=== PATIENT | female | born 1990 | race Caucasian/White ===

== ENCOUNTER 2020-07-15 08:45 | Emergency (ER) | payer BC, SELFPAY ==
[2020-07-15 09:09] LABS: Basophils Absolute Auto 0.1 K/mm3 (0.0-0.1); Basophils Percent Auto 0.6 % (0.2-1.2); Eosinophils Absolute Auto 0.2 K/mm3 (0-0.3); Eosinophils Percent Auto 1.4 % (0-4.4); Hematocrit 46.4 % (37.0-47.0); Hemoglobin 15.5 g/dL (12.0-15.0); Immature Granulocyte Absolute 0.03 K/mm3 (0.00-0.031); Immature Granulocyte Percent A 0.3 % (0-0.5); Lymphocytes Absolute Auto 1.62 K/mm3 (0.9-3.2); Mean Corpuscular HGB Conc 33.4 g/dl (32-36); Mean Corpuscular Hemoglobin 29.6 pg (26-34); Mean Corpuscular Volume 88.7 fl (80-100); Mean Platelet Volume 9.2 fl (7.4-10.4); Monocytes Absolute Auto 0.6 K/mm3 (0.1-0.6); Monocytes Percent Auto 5.5 % (2.6-8.5); Neutrophils Absolute Auto 8.3 K/mm3 (1.3-6.7); Neutrophils Percent Auto 77.2 % (45.5-73.1); Platelet Count Result 366 k/mm3 (150-375); Red Blood Count 5.23 M/mm3 (4.2-5.4); Red Cell Distribution Width 13.6 % (11.5-14.5); White Blood Count 10.8 K/mm3 (4.5-10.0)
[2020-07-15 09:10] VITALS: BP 144/77; PULSE 81; RESP 17; TEMP 36.4; O2SAT 99
[2020-07-15 09:29] LABS: Anion Gap 8 mmol/L (8-16); Blood Urea Nitrogen 8 mg/dL (7-17); Calcium 9.3 mg/dL (8.4-10.2); Carbon Dioxide 28 mmol/L (22-30); Chloride 105 mmol/L (98-107); Estimated CRCL calculation 113 ml/min; Estimated Glomerular Filt Rate > 60; Glucose 95 mg/dL (65-105); Sodium 141 mmol/L (137-145)
[2020-07-15 09:39] LABS: Beta HCG Quantitative < 2.39 mIU/ML
--- NOTE | 2020-07-15 10:19 | ED.FEMALEGU ---
HPI - Female Genitourinary General Chief complaint: Vaginal Bleeding Stated complaint: poss miscarriage Time Seen by Provider: 07/15/20 08:51 History of Present Illness HPI Narrative: Patient is a 30-year-old female who presents ER for concern of possible miscarriage. LMP on 06/05/2020. She had a positive test last week at her primary care physician's office. She is scheduled to follow-up with Dr. Jackson for OB but has not yet been seen. She noticed some spotting last night while she is at home. This morning when she woke up she feels like she is on her third day of her period with some heavier bleeding. She is filled 1 pad. Has some lower abdominal cramping but no pain. Denies any urinary symptoms. Related Data Allergies Allergy/AdvReac Type Severity Reaction Status Date / Time No Known Allergies Allergy Verified 07/15/20 09:16 Review of Systems Review of Systems: All systems reviewed & are unremarkable except as noted in HPI and below Gastrointestinal: Gastrointestinal: Reports abdominal pain (cramping), Denies nausea and Denies vomiting Genitourinary: Genitourinary: Reports abnormal vaginal bleeding, Denies nocturia, Denies dysuria and Denies vaginal discharge Neurologic: Denies syncope PMFSH Past Medical History Medical History (Updated 07/15/20 @ 11:07 by Nadeem Donald MD) Healthy female adult Surgical History Surgical History (Updated 07/15/20 @ 10:21 by Nadeem Donald MD) No history of previous surgery Family History Family History (Updated 07/23/18 @ 10:35 by DOCTOR UNKNOWN) Grandparent Family history of schizophrenia Hypertension Family history of elevated blood lipids Family history of lung cancer Mother Hypertension Depression Family history of migraine headaches Patient's mother is in good health Family history of arthritis Father Family history of thyroid disease Family history of obesity Patient's father is in good health Social History Social History Smoking status: Never smoker Second hand tobacco smoke exposure: No Alcohol intake: current Exam Narrative: Exam Narrative: GENERAL: Well-appearing, well-nourished, and in no acute distress. HEAD: Normocephalic, atraumatic. CHEST: Clear to auscultation. No respiratory distress. HEART: Regular rate and rhythm. Normal peripheral pulses. ABDOMEN: Soft, nontender, nondistended. EXTREMITIES: Normal range of motion. No edema. NEURO: Alert and oriented x3. PSYCH: Normal mood and affect. Course Course Emergency Course: Patient informed of results and diagnosis. Patient without unilateral localizing tenderness on abdominal exam. Undetectable blood level. O+. No need for RhoGam. Recommend follow-up with PCP. Vital Signs Vital signs: Vital Signs Temperature 97.5 F L 07/15/20 09:10 Pulse Rate 81 07/15/20 09:10 Respiratory Rate 17 07/15/20 09:10 Blood Pressure 144/77 H 07/15/20 09:10 Pulse Oximetry 99 07/15/20 09:10 Temperature 97.5 F L 07/15/20 09:10 Pulse Rate 80 07/15/20 10:54 Respiratory Rate 18 07/15/20 10:54 Blood Pressure 135/75 07/15/20 10:54 Pulse Oximetry 100 07/15/20 10:54 MDM - Female Genitourinary Lab Data Result diagrams: 07/15/20 09:01 07/15/20 09:01 Labs: Lab Results 07/15/20 07/15/20 07/15/20 Range/Units 09:01 09:01 09:01 WBC 10.8 H (4.5-10.0) K/mm3 RBC 5.23 (4.2-5.4) M/mm3 Hgb 15.5 H (12.0-15.0) g/dL Hct 46.4 (37.0-47.0) % MCV 88.7 (80-100) fl MCH 29.6 (26-34) pg MCHC 33.4 (32-36) g/dl RDW 13.6 (11.5-14.5) % Plt Count 366 (150-375) k/mm3 MPV 9.2 (7.4-10.4) fl Immature Gran % (Auto) 0.3 (0-0.5) % Neut % (Auto) 77.2 H (45.5-73.1) % Lymph % (Auto) 15.0 L (18.3-44.2) % Deuel % (Auto) 5.5 (2.6-8.5) % Eos % (Auto) 1.4 (0-4.4) % Baso % (Auto) 0.6 (0.2-1.2) % Lymph # (Auto) 1.62 (0.9-3.2) K/mm3 Deuel # (A
[2020-07-15 10:54] VITALS: BP 135/75; PULSE 80; RESP 18; O2SAT 100
== END 2020-07-15 11:17 | disposition home or self-care (01) ==
PROVIDERS: Emergency Provider Emergency Medicine; PCP Family Medicine
DX: O03.9 Complete or unspecified spontaneous abortion without complication (principal)
CPT/HCPCS: 36415; 80048; 81025; 84702; 85025; 85461; 99284

== ENCOUNTER 2021-05-08 10:04 | Outpatient (CLI) | payer BC, SELFPAY ==
[2021-05-08 11:00] VITALS: BP 129/75; PULSE 94
[2021-05-08 11:01] VITALS: BP 129/75; PULSE 92
[2021-05-08 11:02] LABS: Basophils Percent Auto 0.3 % (0.2-1.2); Eosinophils Absolute Auto 0.1 K/mm3 (0-0.3); Eosinophils Percent Auto 0.8 % (0-4.4); Hematocrit 41.2 % (37.0-47.0); Hemoglobin 13.7 g/dL (12.0-15.0); Immature Granulocyte Absolute 0.07 K/mm3 (0.00-0.031); Immature Granulocyte Percent A 0.7 % (0-0.5); Lymphocytes Percent Auto 13.8 % (18.3-44.2); Mean Corpuscular HGB Conc 33.3 g/dl (32-36); Mean Corpuscular Hemoglobin 30.2 pg (26-34); Mean Corpuscular Volume 90.7 fl (80-100); Mean Platelet Volume 10.9 fl (7.4-10.4); Monocytes Absolute Auto 0.8 K/mm3 (0.1-0.6); Monocytes Percent Auto 7.4 % (2.6-8.5); Neutrophils Absolute Auto 7.9 K/mm3 (1.3-6.7); Platelet Count Result 196 k/mm3 (150-375); Red Blood Count 4.54 M/mm3 (4.2-5.4); Red Cell Distribution Width 14.6 % (11.5-14.5); White Blood Count 10.2 K/mm3 (4.5-10.0)
[2021-05-08 11:16] VITALS: BP 133/73; PULSE 83
[2021-05-08 11:18] LABS: Alanine Aminotransferase 24 U/L (4-35); Albumin Level 3.6 g/dL (3.5-5.1); Alkaline Phosphatase 186 U/L (38-126); Anion Gap 2 mmol/L (8-16); Aspartate Amino Transferase 29 U/L (14-36); Bilirubin,Total 0.1 mg/dL (0.2-1.3); Blood Urea Nitrogen 11 mg/dL (7-17); Calcium 9.3 mg/dL (8.4-10.2); Carbon Dioxide 20 mmol/L (22-30); Chloride 108 mmol/L (98-107); Estimated Glomerular Filt Rate > 60; Glucose 104 mg/dL (65-110); Sodium 130 mmol/L (137-145)
[2021-05-08 12:18] LABS: Creatinine Urine 41.9 mg/dL; Total Protein Urine Random 12 mg/dL; Ur Ttl Prot Creatinine Ratio 0.29 mg/mg (0-0.20)
[2021-05-08 12:45] LABS: Add Urine Microscopic? YES; Appearance Urine Cloudy (Clear); Bilirubin Urine Negative (Negative); Blood Urine Negative (Negative); Color Urine Red (Yellow); Glucose Urine UA Negative (Negative); Ketones Urine Negative (Negative); Leukocyte Esterase Ur Negative LEU/UL (NEGATIVE); Mucus Urine Rare /lpf; Nitrate Urine Negative (Negative); Protein Urine Negative (Negative); Specific Grav Ur 1.008 (1.001-1.035); Squamous Epithelial Cell Urine Occasional /hpf (Few); Urobilinogen Urine Negative mg/dL (<2.0); WBC Urine 0-3 /hpf (0-3)
== END 2021-05-08 12:46 | disposition home or self-care (01) ==
LOC: ANHOBOP 10:10 → ANHOBPP 10:12
PROVIDERS: PCP Family Medicine; Visit Provider Obstetrics & Gynecology
DX: O13.9 Gestational [pregnancy-induced] hypertension without significant proteinuria, unspecified trimester (principal); Z3A.00 Weeks of gestation of pregnancy not specified
CPT/HCPCS: 36415; 59025; 80053; 81001; 82570; 84156; 84550; 85025; 87077; 87086; 87088; 87186; 99199

== ENCOUNTER 2021-05-16 05:01 | Inpatient (IN) | payer BC, SELFPAY ==
[2021-05-16] VITALS (33 sets, daily range): BP systolic 125–164; BP diastolic 56–119; PULSE 71–97; RESP 16; TEMP 36.3–37.3; BMI 38.7
--- NOTE | 2021-05-16 05:49 | LDADM ---
This patient, Emilia Mcfarlane, was admitted to Labor/Delivery/Recovery 103 on 05/16/21 at 05:01. Plans for labor, pain management and were discussed with patient. Patient/family oriented to hospital policies and general routines including ID bracelet, bed and alarms, visiting hours, pain management, procedures, bathroom and other care routines, personal items, smoking policy, room service/diet and guest tray routines, security routines, and visiting hours. Patient/Family are encouraged to report perceived risks to care and to ask questions if they do not understand what they are told or what they should do. See OBIX for further documentation.
[2021-05-16 05:59] LABS: Basophils Percent Auto 0.2 % (0.2-1.2); Eosinophils Absolute Auto 0.1 K/mm3 (0-0.3); Eosinophils Percent Auto 0.9 % (0-4.4); Hematocrit 40.3 % (37.0-47.0); Hemoglobin 13.7 g/dL (12.0-15.0); Immature Granulocyte Absolute 0.08 K/mm3 (0.00-0.031); Immature Granulocyte Percent A 0.7 % (0-0.5); Lymphocytes Absolute Auto 1.84 K/mm3 (0.9-3.2); Lymphocytes Percent Auto 15.1 % (18.3-44.2); Mean Corpuscular Hemoglobin 30.8 pg (26-34); Mean Corpuscular Volume 90.6 fl (80-100); Monocytes Absolute Auto 0.8 K/mm3 (0.1-0.6); Monocytes Percent Auto 6.2 % (2.6-8.5); Neutrophils Absolute Auto 9.4 K/mm3 (1.3-6.7); Neutrophils Percent Auto 76.9 % (45.5-73.1); Platelet Count Result 184 k/mm3 (150-375); Red Blood Count 4.45 M/mm3 (4.2-5.4); Red Cell Distribution Width 14.4 % (11.5-14.5); White Blood Count 12.2 K/mm3 (4.5-10.0)
[2021-05-16] MEDS: AMPICILLIN 2 GM/NS 100 ML 2 GM/100 ML BAG IVPB (06:04)
[2021-05-16] MEDS: OXYTOCIN 30 UNITS/NS 500 ML 30 UNITS/500 ML BAG 6 UNITS IV CONT (06:04)
[2021-05-16] MEDS: LACTATED RINGERS 1,000 ML 125 ML IV CONT ×2 (06:04→17:05)
[2021-05-16 06:05] LABS: Alanine Aminotransferase 32 U/L (4-35); Albumin Level 3.4 g/dL (3.5-5.1); Alkaline Phosphatase 195 U/L (38-126); Anion Gap 4 mmol/L (8-16); Aspartate Amino Transferase 32 U/L (14-36); Bilirubin,Total 0.4 mg/dL (0.2-1.3); Blood Urea Nitrogen 10 mg/dL (7-17); Calcium 9.5 mg/dL (8.4-10.2); Carbon Dioxide 21 mmol/L (22-30); Chloride 108 mmol/L (98-107); Estimated CRCL calculation 150 ml/min; Estimated Glomerular Filt Rate > 60; Glucose 129 mg/dL (65-110); Potassium 3.7 mmol/L (3.4-5.0); Sodium 133 mmol/L (137-145)
--- NOTE | 2021-05-16 08:45 | WPDOBADMIT ---
Obstetrics - Admit Note Admission Note: record reviewed. Additions to the history and/or subsequent changes in the physical findings follow. 30 y/o at 38 4/7 weeks with gestational hypertension, here for scheduled induction of labor. GBS neg. No headaches. No leakage of fluid. No visual change. No RUQ or epigastric pain. AVSS (130-140 / 80-90) NST reactive TOCO: irregular contractions ABD soft, nontender, gravid, vertex EXT nontender Cervix 2-3/50/-2. AROM with clear fluid. Vertex. A: IUP at term with gestational hypertension, here for induction of labor P: Reviewed risks / benefits / alternatives. Oxytocin. Anticipate .
[2021-05-16] MEDS: AMPICILLIN 1 GM/NS 50 ML 1 GM/50 ML BAG IVPB ×2 (10:02→14:05)
--- NOTE | 2021-05-16 10:45 | WPDANESEPP ---
Anes - Eval Pre Procedure Procedure: labor pain management Date/Time: 05/16/21 10:45 Surgeon: Leigha Preop Diagnosis: Pain during labor Pre Op Diagnosis: IOL Patient Data Age: 30 Gender: F Height: 1.57 m Weight: 96 kg Last Vital Signs Temp 99.2 F 05/16/21 08:59 Pulse 78 05/16/21 10:31 BP 126/78 05/16/21 10:31 Allergies Allergy/AdvReac Type Severity Reaction Status Date / Time No Known Allergies Allergy Verified 04/26/21 15:39 Home Medications Medication Instructions Recorded Confirmed Type vit no.95-ferrous 1 tablet PO DAILY 07/22/20 05/16/21 History fumarate 28 mg-folic acid 800 mcg tablet Laboratory Tests 05/16/21 05/16/21 05/16/21 05:44 05:44 05:44 WBC 12.2 K/mm3 H K/mm3 (4.5-10.0) RBC 4.45 M/mm3 M/mm3 (4.2-5.4) Hgb 13.7 g/dL g/dL (12.0-15.0) Hct 40.3 % % (37.0-47.0) MCV 90.6 fl fl (80-100) MCH 30.8 pg pg (26-34) MCHC 34.0 g/dl g/dl (32-36) RDW 14.4 % % (11.5-14.5) Plt Count 184 k/mm3 k/mm3 (150-375) MPV 11.0 fl H fl (7.4-10.4) Immature Gran % (Auto) 0.7 % H % (0-0.5) Neut % (Auto) 76.9 % H % (45.5-73.1) Lymph % (Auto) 15.1 % L % (18.3-44.2) Sunflower % (Auto) 6.2 % % (2.6-8.5) Eos % (Auto) 0.9 % % (0-4.4) Baso % (Auto) 0.2 % % (0.2-1.2) Lymph # (Auto) 1.84 K/mm3 K/mm3 (0.9-3.2) Sunflower # (Auto) 0.8 K/mm3 H K/mm3 (0.1-0.6) Eos # (Auto) 0.1 K/mm3 K/mm3 (0-0.3) Baso # (Auto) 0.0 K/mm3 K/mm3 (0.0-0.1) Abs Immat Gran (auto) 0.08 K/mm3 H K/mm3 (0.00-0.031) Absolute Neuts (auto) 9.4 K/mm3 H K/mm3 (1.3-6.7) Absolute Nucleated RBC 0.0 K/mm3 K/mm3 (0.0-0.012) Nucleated RBC % 0.0 % % (0.0-0.2) Sodium Potassium Chloride Carbon Dioxide Anion Gap BUN Creatinine Estim Creat Clear Calc Estimated GFR Glucose Uric Acid Calcium Total Bilirubin AST ALT Alkaline Phosphatase Total Protein Albumin RPR Pending Blood Type O Positive Antibody Screen Negative 05/16/21 05/16/21 05:44 05:44 WBC RBC Hgb Hct MCV MCH MCHC RDW Plt Count MPV Immature Gran % (Auto) Neut % (Auto) Lymph % (Auto) Sunflower % (Auto) Eos % (Auto) Baso % (Auto) Lymph # (Auto) Sunflower # (Auto) Eos # (Auto) Baso # (Auto) Abs Immat Gran (auto) Absolute Neuts (auto) Absolute Nucleated RBC Nucleated RBC % Sodium 133 mmol/L L mmol/L (137-145) Potassium 3.7 mmol/L mmol/L (3.4-5.0) Chloride 108 mmol/L H mmol/L (98-107) Carbon Dioxide 21 mmol/L L mmol/L (22-30) Anion Gap 4 mmol/L L mmol/L (8-16) BUN 10 mg/dL mg/dL (7-17) Creatinine 0.50 mg/dL L mg/dL (0.7-1.0) Estim Creat Clear Calc 150 ml/min ml/min Estimated GFR > 60 (59 - ) Glucose 129 mg/dL H mg/dL (65-110) Uric Acid 6.0 mg/dL mg/dL (2.5-7.5) Calcium 9.5 mg/dL mg/dL (8.4-10.2) Total Bilirubin 0.4 mg/dL mg/dL (0.2-1.3) AST 32 U/L U/L (14-36) ALT 32 U/L U/L (4-35) Alkaline Phosphatase 195 U/L H U/L (38-126) Total Protein 7.0 g/dL g/dL (6.3-8.2) Albumin 3.4 g/dL L g/dL (3.5-5.1) RPR Blood Type Antibody Screen : gestational age (edc 05/26/21) HCG: positive Patient hx anesthesia problems: none Family hx anesthesia problems: none PM
--- NOTE | 2021-05-16 12:08 | PM.OBPNLAB ---
Pain Control Date/time seen: 05/16/21 12:08 Comments: Feeling more painful contractions. Pelvic Exam Dilation (cm): 4 Effacement (%): 90 station: -2 Comments: per RN exam Contractions Contraction frequency: 3 Contraction pattern: Regular Contraction intensity: Strong/Firm Status status: Category l Assessment and Plan Plan: continuous present management
--- NOTE | 2021-05-16 18:08 | P.PCNOB_ITS ---
OB - Delivery Note Procedure Delivery date: 05/16/21 Procedure: Induction of labor with Induction method: per pitocin protocol Delivery augmentation: rupture of membranes Delivery monitor: external FHT and external uterine Route of delivery: Laceration Description: Perineal - 2nd Degree Delivery repair: vicryl (3-0) Specimen: Yes (cord blood, placenta) Quantitative Blood Loss (ml): 260 Anesthesia type: Local (1% lidocaine) Disposition: PACU Complications: None Narrative: 30 y/o at 38 4/7 weeks gestation who presented to the [facility] for induction of labor. Oxytocin was administered intravenously. She received ampicillin for GBS colonization. Amniotomy was performed with return of clear fluid. She received an epidural for pain control. Her labor progressed and her cervix dilated completely. She pushed with good effort and delivered the 's head to the perineum, followed by the body. The nose and mouth were bulb suctioned. After a delay, the cord was clamped and cut. The was handed off the field. Cord blood was collected. The placenta delivered spontaneously and was grossly normal in appearance. The usual 3 vessel cord was noted. A second degree midline perineal laceration was sustained. This was reapproximated using 3 0 Vicryl in the usual layered fashion. Excellent hemostasis resulted as did excellent reapproximation of the normal anatomy. Needle and instrument counts were correct. The patient was taken to recovery room in stable condition. The went to the nursery in stable condition. I was present and scrubbed for the entire delivery. Brogan Baby Date of : 05/16/21 Time of : 17:40 Weeks of gestation at delivery: 38 gender: Female Weight (pounds): 6 presentation: vertex position: Right Occiput Anterior Placenta delivery description: Spontaneous and Normal Configuration cord vessel description: 3 Vessels and Delayed Cord Clamping score one minute: 8 score five minutes: 9
[2021-05-16] MEDS: OXYTOCIN 30 UNITS/NS 500 ML 30 UNITS/500 ML BAG 125 UNITS IV CONT (18:09)
--- NOTE | 2021-05-16 18:12 | PM.OBDSVD ---
DS: Admitting Diagnosis Admitting Diagnosis IUP at 38 4/7 weeks Gestational hypertension GBS colonization DS: Discharge Diagnosis Discharge Diagnosis (1) (normal spontaneous vaginal delivery): Code(s): O80 - Encounter for full-term uncomplicated delivery Status: Acute (2) Gestational hypertension: Code(s): O13.9 - Gestational [-induced] hypertension without significant proteinuria, unspecified trimester Status: Acute (3) GBS (group B Streptococcus carrier), +RV culture, currently : Code(s): O99.820 - Streptococcus B carrier state complicating Status: Acute OB - DS: Summary OB Procedures : None OB Procedures Intrapartum: Spontaneous Vag Delivery OB Procedures: : None DS: Data Data Completed and Pending Labs on day of discharge: Labs from last 24 hours 05/16/21 05/16/21 05/16/21 05:44 05:44 05:44 WBC RBC Hgb Hct MCV MCH MCHC RDW Plt Count MPV Immature Gran % (Auto) Neut % (Auto) Lymph % (Auto) Carbon % (Auto) Eos % (Auto) Baso % (Auto) Lymph # (Auto) Carbon # (Auto) Eos # (Auto) Baso # (Auto) Abs Immat Gran (auto) Absolute Neuts (auto) Absolute Nucleated RBC Nucleated RBC % Sodium 133 L Potassium 3.7 Chloride 108 H Carbon Dioxide 21 L Anion Gap 4 L BUN 10 Creatinine 0.50 L Estim Creat Clear Calc 150 Estimated GFR > 60 Glucose 129 H Uric Acid 6.0 Calcium 9.5 Total Bilirubin 0.4 AST 32 ALT 32 Alkaline Phosphatase 195 H Total Protein 7.0 Albumin 3.4 L RPR Blood Type O Positive Antibody Screen Negative 05/16/21 05/16/21 05:44 05:44 WBC 12.2 H RBC 4.45 Hgb 13.7 Hct 40.3 MCV 90.6 MCH 30.8 MCHC 34.0 RDW 14.4 Plt Count 184 MPV 11.0 H Immature Gran % (Auto) 0.7 H Neut % (Auto) 76.9 H Lymph % (Auto) 15.1 L Carbon % (Auto) 6.2 Eos % (Auto) 0.9 Baso % (Auto) 0.2 Lymph # (Auto) 1.84 Carbon # (Auto) 0.8 H Eos # (Auto) 0.1 Baso # (Auto) 0.0 Abs Immat Gran (auto) 0.08 H Absolute Neuts (auto) 9.4 H Absolute Nucleated RBC 0.0 Nucleated RBC % 0.0 Sodium Potassium Chloride Carbon Dioxide Anion Gap BUN Creatinine Estim Creat Clear Calc Estimated GFR Glucose Uric Acid Calcium Total Bilirubin AST ALT Alkaline Phosphatase Total Protein Albumin RPR Pending Blood Type Antibody Screen Discharge Plan Discharge Attending physician on discharge: Zohaib Ahuja Discharging Clinician: Zohaib Ahuja Patient Disposition: Home, Self-Care Activity: pelvic rest Diet: regular Discharge Instructions: Call or return if temperature above 100.4? F, increased abdominal pain, increased vaginal bleeding or any new problems. Stand Alone Forms: General Discharge Information Follow-up/Referrals: Zohaib Ahuja MD [Physician] - 6 Weeks Discharge Medications: New ibuprofen 600 mg tablet 600 mg PO Q6H PRN (Reason: cramps) Qty: 30 RF: 0 No Action PNV cmb#95-ferrous fumarate-FA [ Multivitamins] 28 mg iron- 800 mcg tablet 1 tablet PO DAILY RF: 0 Date of admission: 05/16/21 05:01 Primary Care Provider: Brooke Arvizu Admitting Provider: Zohaib Ahuja Attending physician on admission: Zohaib Ahuja Condition: Stable
[2021-05-16] MEDS: WITCH HAZEL 40 PADS 1 PAD TOPICAL (19:30)
[2021-05-16] MEDS: IBUPROFEN 600 MG TABLET PO (19:30)
[2021-05-16] MEDS: BENZOCAINE 20% AER SPR (*SP) 56 GM CAN 1 SPRAY TOPICAL (19:30)
[2021-05-17 04:44] LABS: Hematocrit 33.8 % (37.0-47.0); Hemoglobin 11.3 g/dL (12.0-15.0)
[2021-05-17] MEDS: IBUPROFEN 600 MG TABLET PO ×3 (07:14→22:50)
[2021-05-17] MEDS: MULTIVIT/MIN/PREN/FOL AC/IRON TABLET 1 TAB PO (07:14)
[2021-05-17] MEDS: DOCUSATE SODIUM 100 MG CAPSULE PO ×2 (07:15→17:57)
[2021-05-17 07:21] VITALS: PULSE 88; RESP 16
[2021-05-17 08:10] VITALS: BP 145/78; PULSE 104; RESP 18; TEMP 36.9; O2SAT 98
--- NOTE | 2021-05-17 09:10 | PC.NURSE ---
Mother called out for assist with feeding, reporting is sleepy and is using a nipple shield for all feedings. Mother has concerns that infant will not latch after using the nipple shield. Mother is pump after all feedings due to shield use. Discussed nipple shield precautions and possible complications. Instructions given on application and cleaning of shield. Patient able to return demonstration on proper application of shield. Discussed the need for regular pumping if continues to nurse with the shield. Patient verbalizes understanding. Discussed nipple shield was given to assist infant with latching and maintaining latch. Reviewed weaning techniques once infant is feeding effectively. Infant is able to freely thrust tongue past gum ridge and flange both lips. Skin is intact on both nipples, no redness and bruising noted. Reviewed infant feeding cues, frequencies, duration of feedings, feeding elimination flow sheet, and signs of adequate intake. Demonstrated stimulation techniques to wake infant for feeding. Assisted with infant to breast. Reviewed positioning/alignment in football, holding breast in ?C? hold and guided asymmetrical latch on. Discussed rational for each. Several attempts before able to latch correctly. Reviewed signs of a correct latch, effective nursing and suck swallow ratio. Infant nursed a few short bursts of short chewy suckling and would remain at breast with nipple in her mouth. Suggested mother stimulate while feeding to increase stimulation, increase intake and to assist with maintaining deep latch. Reviewed the difference of effective vs ineffective nursing. Discussed infant is not effectively transferring milk at this feeding. Infant was able to maintain latch with minimal suckling noted. Mother reports has had a few minutes of steady draws of nursing, is more sleepy at breast than active. Discussed feeding options at this time. Mother will supplement 15mls after each feeding until is able to effectively nurse for 10-15 minutes. Mother reports she is pumping without difficulties or discomfort at this time.
--- NOTE | 2021-05-17 10:00 | PC.NURSE ---
PT introductions made and plan of care discussed per post , pain management, breast feeding daily care activities. PT and spouse both recipients of such education and instructions. This shift using one to one discussion, demonstration and mom baby care guide. PT and spouse show no barriers to learning at this time. PT verbalized understanding of such care.
[2021-05-17 12:10] VITALS: BP 127/79; PULSE 91; RESP 16; TEMP 37.2; O2SAT 99
--- NOTE | 2021-05-17 12:25 | PC.NURSE ---
Mother called out for assist with feeding. Reviewed feeding cues, frequencies, duration of feedings, feeding elimination flow sheet, and signs of adequate intake. Demonstrated stimulation techniques to wake infant for feeding. Assisted with to breast. Reviewed positioning/alignment in football, holding breast in ?C? hold and guided asymmetrical latch on. Discussed rational for each. Several attempts before infant able to latch correctly. Reviewed signs of a correct latch, effective nursing and suck swallow ratio. nursed a few short bursts of short chewy suckling and would remain at breast with nipple in her mouth. Suggested mother stimulate while feeding to increase stimulation, increase intake and to assist with maintaining deep latch. Small drops of formula to shield and mouth to entice into more consistent nursing. Infant had small bursts of increased nursing with enticement. Infant sleepy and difficult to latch once released. Reviewed the difference of effective vs ineffective nursing. Discussed is not effectively transferring milk at this feeding. was able to maintain latch with minimal suckling noted. Mother will supplement 15mls . Mother mother will pump for 15 minutes.
[2021-05-17] MEDS: LANOLIN (LANSINOH) 7.5 GM CREAM 1 APPLIC TOPICAL (13:24)
--- NOTE | 2021-05-17 14:04 | PM.OBPNVD ---
OB - PN: Subj Subjective Date/time seen: 05/17/21 14:04 Narrative: Pain OK. OB - PN: Obj Data Labs CBC & Chem 7: 05/17/21 04:27 05/16/21 05:44 Labs: Laboratory Results - last 24 hr 05/17/21 04:27 Hgb 11.3 L Hct 33.8 L OB - PN A/P Plan Comments: A: PPD#1, doing well. P: Routine care. Exam Psych: Other: AVSS ABD soft, nontender, fundus firm EXT nontender
[2021-05-17 16:30] VITALS: BP 126/72; PULSE 88; RESP 16; TEMP 37.2; O2SAT 98
[2021-05-17 19:12] VITALS: BP 122/72; PULSE 93; RESP 16; TEMP 36.8
[2021-05-18 05:30] VITALS: BP 123/70; PULSE 86; RESP 16; TEMP 36.8
[2021-05-18 07:20] VITALS: BP 133/82; PULSE 75; RESP 18; TEMP 37.2; O2SAT 97
--- NOTE | 2021-05-18 08:00 | PC.NURSE ---
Mother is able to independently latch with appropriate positioning/alignment using the nipple shield for most feeding. Mother supplements after most feedings due to ineffective feeding. Mother is pumping after all feedings due to shield use. She denies any nipple discomfort, is feeding as required and waking to feed if needed. has had several effective feedings in the past 24 hours latching at times without shield. Weaning techniques from shield reviewed. Infant is currently meeting outcomes for weight, output, jaundice and feeding frequencies. Mother states she feels confident to continue current feeding plan at home and understand to contact Packaging Inspector if infant continues to require shield use and supplementation after day 7. Discussed may want to increase supplementation of EBM/formula after breastfeedings, advised to increase to infant satisfaction. Reviewed may not want to feed for 4 hours with increased supplementation. Mother will follow infant feeding for pumping and increase sessions to 20 minutes if pumping every 4 hours. Reviewed may want to decrease/discontinue supplementation if milk transitions in and is feeding effectively, advised not to discontinue supplement until a pre/post weight feeding evaluation done by follow up RN, ICP or Packaging Inspector. Reviewed transition to breast milk, signs of adequate intake, and engorgement/relief. Instructed to call ICP if intake/output less than required. Reviewed regular medications mother is taking. Information provided per Padmini. Reviewed community resources on the [facility] website and in the Mom[employer]Baby guide. Information on outpatient services provided. Mother has no further questions at this time.
[2021-05-18] MEDS: DOCUSATE SODIUM 100 MG CAPSULE PO (08:39)
[2021-05-18] MEDS: IBUPROFEN 600 MG TABLET PO (08:40)
[2021-05-18 09:19] LABS: Rapid Plasma Reagin Non-Reactive (NonReactive)
--- NOTE | 2021-05-18 09:24 | PM.OBPNVD ---
OB - PN: Subj Subjective Date/time seen: 05/18/21 09:24 Narrative: Pain OK. Would like to go home. OB - PN: Obj Data Labs CBC & Chem 7: 05/17/21 04:27 05/16/21 05:44 Labs: Laboratory Results - last 24 hr 05/16/21 05:44 RPR Non-reactive OB - PN A/P Plan Comments: A: PPD#2, doing well. P: Home to f/u 6 weeks. Exam Psych: Other: AVSS ABD soft, nontender, fundus firm EXT nontender
[2021-05-19 11:24] VITALS: BP 144/75; PULSE 76; RESP 20; TEMP 37.1; O2SAT 100
== END 2021-05-18 11:49 | disposition home or self-care (01) | DRG 807 ==
LOC: ANHLDR 18:14 → ANHOB2 20:41
PROVIDERS: Admitting Provider Obstetrics & Gynecology; PCP Family Medicine; Visit Provider Obstetrics & Gynecology
DX: O13.4 Gestational [pregnancy-induced] hypertension without significant proteinuria, complicating childbirth (principal); Z37.0 Single live birth; O99.824 Streptococcus B carrier state complicating childbirth; O70.1 Second degree perineal laceration during delivery; Z3A.38 38 weeks gestation of pregnancy
CPT/HCPCS: 36415; 80053; 84550; 85014; 85018; 85025; 86592; 86850; 86900; 86901; 88307; A9270; J0290; J2590; J7120

== ENCOUNTER 2022-11-16 21:29 | Day surgery (SDC) | payer BC, SELFPAY ==
--- NOTE | ~2022-11-16 | CT_ITS ---
EXAMINATION: CT abdomen pelvis w con DATE: 11/16/2022 23:27 INDICATION: Abdominal pain and vomiting TECHNIQUE: Computed tomography (CT) of the abdomen and pelvis was performed with 100 CC Omnipaque 350 intravenous contrast. Automated exposure control and iterative reconstruction technique were employe d. Exam dose: 891.70 mGy-cm total exam DLP. COMPARISON: None. FINDINGS: Minimal dependent bilateral lower lobe atelectasis. The lung bases are clear of infiltrate or consolidation. Normal heart size. No pericardial or pleural effusion. 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 The liver, gallbladder, bile ducts, spleen, pancreas, pancreatic duct, and adrenal glands and kidneys are unremarkable. Normal caliber of the abdominal aorta. No intraperitoneal or retroperitoneal or pe lvic mass lesion or adenopathy or ascites. Dilated appendix measuring up to 12 mm diameter, with periappendiceal fat stranding, consistent with acute appendicitis. No abscess or intraperitoneal free air is evident. No bowel obstruction. Minimal free fluid in the posterior cul-de-sac. Approximately 1.4 x 1.8 cm enhancing nodule is noted at the right ovary. Pelvic ultrasound correlatio n is recommended. The uterus and adnexal areas are otherwise unremarkable. The urinary bladder is unr emarkable. Bilateral osteitis condensans ilii. IMPRESSION: Acute uncomplicated appendicitis Prominent ultrasound examination is recommended for 1.3 x 1.8 cm enhancing right ovarian nodule Reviewed, dictated and finalized at [facility]. Reviewed, dictated and finalized at [facility]. T MAKER IMPRESSION: Acute uncomplicated appendicitis Prominent ultrasound examination is recommended for 1.3 x 1.8 cm enhancing righ t ovarian nodule
[2022-11-16 21:30] VITALS: BP 143/81; PULSE 80; RESP 18; TEMP 36.4; O2SAT 100
--- NOTE | 2022-11-16 22:04 | ED.ABDPAIN ---
HPI - Abdominal Pain General Chief Complaint: Abdominal Pain Stated Complaint: abd pain Time Seen by Provider: 11/16/22 21:49 History of Present Illness HPI narrative: 32-year-old female with a history of constipation reports for acute onset abdominal pain, chills and vomiting x4 hours. Patient states she felt normal prior to onset of symptoms, and suddenly began having generalized abdominal pain worse in the epigastric and right upper quadrant, that radiates down into the suprapubic region. She reports associated low back pain. States she has vomited around 7 times since the onset of symptoms, nonbloody. She states this abdominal pain is worse than childbirth, which she had without drugs. States her last menstrual period was 10/26 and she does not believe she is . Denies fever, body aches, chest pain, shortness of breath, diarrhea, melena, hematochezia, focal numbness or weakness. She denies dysuria, hematuria, urinary urgency or frequency. Patient reports she has not taken anything for pain. Related Data Home Medications Medication Instructions Recorded Confirmed multivitamin 1 tablet PO DAILY 09/13/22 10/01/22 Allergies Allergy/AdvReac Type Severity Reaction Status Date / Time No Known Allergies Allergy Verified 11/16/22 21:36 Review of Systems Review of Systems: CONSTITUTIONAL: Denies fever EYES: Denies visual changes, redness, or discharge. ENT: Denies rhinorrhea, congestion, sore throat, or otalgia. CARDIOVASCULAR: Denies chest pain, palpitations, or edema. RESPIRATORY: Denies cough or dyspnea. GASTROINTESTINAL: See HPI GENITOURINARY: Denies dysuria or hematuria. SKIN: Denies rash or itching. MUSCULOSKELETAL: Denies joint pain, or myalgia. NEUROLOGIC: Denies headache, numbness, dizziness, or weakness. PSYCHIATRIC: Denies anxiety or depression. [facility] Past Medical History Medical History Blood type O+ Healthy female adult Surgical History Surgical History No history of previous surgery Family History Family History Grandparent Family history of elevated blood lipids Family history of lung cancer Family history of schizophrenia Hypertension Hypothyroidism Mother Family history of arthritis Depression Patient's mother is in good health Family history of migraine headaches Hypertension Father Patient's father is in good health Family history of obesity Hyperthyroidism Sibling Hyperthyroidism Social History Social History Smoking status: Never smoker Second hand tobacco smoke exposure: No Alcohol intake: current Substance use: never Spiritual care concerns: No Exam Narrative: GENERAL: Well-appearing, well-nourished, and in no acute distress. HEAD: Normocephalic, atraumatic. EYES: PERRLA and EOMI. ENT: Nares clear, no rhinorrhea or epistaxis. Mucous membranes moist. Oropharynx without tonsillar hypertrophy exudate or other lesions. NECK: Supple. No adenopathy or masses. CHEST: Clear to auscultation. No respiratory distress. No wheezes rales or rhonchi HEART: Regular rate and rhythm. No murmur heard. Normal peripheral pulses. ABDOMEN: Soft, nondistended, normal active bowel sounds. Generalized abdominal tenderness, worse in the epigastrium, right upper quadrant, and suprapubic region. No masses, rigidity, distention, guarding. No CVA tenderness. EXTREMITIES: Normal range of motion. No edema. SKIN: Warm, dry, no rash. NEURO: No focal deficits. Alert and oriented x3. PSYCH: Normal mood and affect. Course Course Emergency Course: 1250: Pt reevaluated. She is sleeping in the exam bed with lights off. She reports she has not vomited since she was given zofran and the second dose of morphine relieved her some of her pain. I discus
[2022-11-16] MEDS: MORPHINE SULFATE (*CRX) 4 MG/ML INJ IV PUSH (22:23)
[2022-11-16] MEDS: ONDANSETRON INJ 4 MG/2 ML VIAL IV PUSH (22:23)
[2022-11-16] MEDS: SODIUM CHLORIDE 0.9% IV 1,000 ML 999 ML IV CONT (22:23)
[2022-11-16] MEDS: BELLADONNA ALK/PHENOB ELIX 10 ML, MAG HYDROX/ALUMINUM HYD/SIMETH 30 ML, LIDOCAINE HCL 2... PO (22:24)
[2022-11-16] MEDS: FAMOTIDINE 20 MG/2 ML VIAL IV PUSH (22:24)
[2022-11-16 22:46] LABS: Hematocrit 43.4 % (37.0-47.0); Hemoglobin 14.5 g/dL (12.0-15.0); Mean Corpuscular HGB Conc 33.4 g/dl (32-36); Mean Corpuscular Hemoglobin 29.8 pg (26-34); Mean Corpuscular Volume 89.1 fl (80-100); Mean Platelet Volume 9.1 fl (7.4-10.4); Platelet Count Result 338 k/mm3 (150-375); Red Blood Count 4.87 M/mm3 (4.2-5.4); Red Cell Distribution Width 13.8 % (11.5-14.5)
[2022-11-16 22:57] LABS: Alanine Aminotransferase 29 U/L (6-35); Albumin Level 4.7 g/dL (3.5-5.1); Alkaline Phosphatase 140 U/L (38-126); Anion Gap 8 mmol/L (8-16); Aspartate Amino Transferase 27 U/L (14-36); Bilirubin,Total 0.6 mg/dL (0.2-1.3); Blood Urea Nitrogen 12 mg/dL (7-17); Carbon Dioxide 27 mmol/L (22-30); Chloride 103 mmol/L (98-107); Estimated CRCL calculation 119 ml/min; Estimated Glomerular Filt Rate > 60; Glucose 140 mg/dL (65-110); Lactic Acid Reflex 1.4 mmol/L (0.7-2.0); Lipase 49 U/L (23-300); Potassium 3.9 mmol/L (3.4-5.0); Sodium 138 mmol/L (137-145)
--- NOTE | 2022-11-16 23:01 | PC.NURSE ---
Pt resting comfortably in bed, sleeping w/ visible chest rise and fall, skin warm/dry. NAD.
[2022-11-16 23:28] LABS: Appearance Urine Clear (Clear); Bacteria Urine None Seen /hpf; Bilirubin Urine Negative (Negative); Blood Urine 1+ (Negative); Color Urine Yellow (Yellow); Glucose Urine UA Negative (Negative); Ketones Urine 3+ mg/dL (Negative); Leukocyte Esterase Ur Negative LEU/UL (Negative); Nitrate Urine Negative (Negative); Non Pathogenic Casts 0-2; Protein Urine Negative (Negative); RBC Urine 21-50 /hpf (0-2); Specific Grav Ur 1.022 (1.001-1.035); Squamous Epithelial Cell Urine None seen /hpf (Few); Urobilinogen Urine 0.2 mg/dL (<2.0); WBC Urine 0-5 /hpf
[2022-11-16 23:28] LABS: Band Neutrophils Percent 8 % (0-6); Lymphocytes Absolute Manual 2.08 K/mm3 (1.1-4.5); Metamyelocytes Percent 2 %; Monocytes Absolute Manual 0.52 K/mm3 (0.1-0.90); Monocytes Percent Manual 2 % (3-9); Neutrophils Absolute Manual 22.88 K/mm3 (1.7-7.2); Neutrophils Percent Manual 80 % (46-73); Platelet Estimate Adequate (Adequate); Schistocytes None Seen (NORMAL); Total Cells Counted 100
[2022-11-16 23:41] LABS: Add Urine Microscopic? YES
[2022-11-17] VITALS (16 sets, daily range): BP systolic 110–158; BP diastolic 61–88; PULSE 70–94; RESP 17–22; TEMP 36.6–37.4; O2SAT 97–100
[2022-11-17] MEDS: MORPHINE SULFATE (*CRX) 2 MG/ML INJ IV PUSH (00:04)
[2022-11-17 01:49] LABS: Erythrocyte Sedimentation Rate 16 mm/hr (0-20)
[2022-11-17] MEDS: MORPHINE SULFATE (*CRX) 4 MG/ML INJ IV PUSH ×3 (02:50→07:48)
[2022-11-17] MEDS: ONDANSETRON INJ 4 MG/2 ML VIAL IV PUSH ×3 (02:50→09:12)
[2022-11-17] MEDS: SODIUM CHLORIDE 0.9% IV 1,000 ML 125 ML IV CONT (03:02)
--- NOTE | 2022-11-17 03:05 | PC.NURSE ---
Updated pt on plan of care, pt resting comfortably in bed, states last dose of morphine helped a lot, now rates pain 11/30. NAD.
[2022-11-17 03:38] LABS: Influenza A QL RT-PCR Negative (Negative); Influenza B QL RT-PCR Negative (Negative); SARS-CoV-2 RNA PCR Negative
--- NOTE | 2022-11-17 07:53 | WPDANESEPP ---
Anes - Eval Pre Procedure Procedure: Laparoscopic Appendectomy Date/Time: 11/17/22 07:53 Surgeon: Erick Preop Diagnosis: acute appendicitis Pre Op Diagnosis: Appendicitis Patient Data Age: 32 Gender: F Height: 1.57 m Weight: 88.46 kg Last Vital Signs Temp 98.9 F 11/17/22 06:00 Pulse 80 11/17/22 06:00 Resp 19 11/17/22 06:00 BP 140/83 11/17/22 06:00 Pulse Ox 100 11/17/22 06:00 O2 Del Method Room Air 11/16/22 21:30 Allergies Allergy/AdvReac Type Severity Reaction Status Date / Time No Known Allergies Allergy Verified 11/16/22 21:36 Home Medications Medication Instructions Recorded Confirmed Type multivitamin 1 tablet PO DAILY 09/13/22 11/17/22 History Laboratory Tests 11/16/22 11/16/22 11/16/22 22:11 22:11 22:11 WBC 26.0 K/mm3 H K/mm3 (4.5-10.0) RBC 4.87 M/mm3 M/mm3 (4.2-5.4) Hgb 14.5 g/dL D g/dL (12.0-15.0) Hct 43.4 % % (37.0-47.0) MCV 89.1 fl fl (80-100) MCH 29.8 pg pg (26-34) MCHC 33.4 g/dl g/dl (32-36) RDW 13.8 % % (11.5-14.5) Plt Count 338 k/mm3 D k/mm3 (150-375) MPV 9.1 fl fl (7.4-10.4) Immature Gran % (Auto) Not Reportable Neut % (Auto) Not Reportable Lymph % (Auto) Not Reportable [place] % (Auto) Not Reportable Eos % (Auto) Not Reportable Baso % (Auto) Not Reportable Lymph # (Auto) Not Reportable [place] # (Auto) Not Reportable Eos # (Auto) Not Reportable Baso # (Auto) Not Reportable Abs Immat Gran (auto) Not Reportable Absolute Neuts (auto) Not Reportable Absolute Nucleated RBC Not Reportable Total Counted 100 Neutrophils % (Manual) 80 % H % (46-73) Band Neutrophils % 8 % H % (0-6) Lymphocytes % (Manual) 8.0 % L % (18-44) Monocytes % (Manual) 2 % L % (3-9) Metamyelocytes % 2 % % Nucleated RBC % Not Reportable Abs Neuts (Manual) 22.88 K/mm3 H K/mm3 (1.7-7.2) Abs Lymphs (Manual) 2.08 K/mm3 K/mm3 (1.1-4.5) Abs Monocytes (Manual) 0.52 K/mm3 K/mm3 (0.1-0.90) Platelet Estimate Adequate (Adequate) Schistocytes None seen (NORMAL) ESR Sodium 138 mmol/L mmol/L (137-145) Potassium 3.9 mmol/L mmol/L (3.4-5.0) Chloride 103 mmol/L mmol/L (98-107) Carbon Dioxide 27 mmol/L mmol/L (22-30) Anion Gap 8 mmol/L mmol/L (8-16) BUN 12 mg/dL mg/dL (7-17) Creatinine 0.60 mg/dL L mg/dL (0.7-1.0) Estim Creat Clear Calc 119 ml/min ml/min Estimated GFR > 60 (59 - ) Glucose 140 mg/dL H mg/dL (65-110) Lactic Acid 1.4 mmol/L mmol/L (0.7-2.0) Calcium 9.0 mg/dL mg/dL (8.4-10.2) Total Bilirubin 0.6 mg/dL mg/dL (0.2-1.3) AST 27 U/L U/L (14-36) ALT 29 U/L U/L (6-35) Alkaline Phosphatase 140 U/L H U/L (38-126) C-Reactive Protein Total Protein 8.0 g/dL g/dL (6.3-8.2) Albumin 4.7 g/dL g/dL (3.5-5.1) Lipase 49 U/L U/L (23-300) Urine Color Urine Appearance Urine pH Ur Specific [place] Urine Protein Urine Glucose (UA) Urine Ketones Ur Blood (Man) Urine Nitrate Urine Bilirubin Urine Urobilinogen Leukocyte Esterase Rfl Urine RBC Urine WBC Ur Squamous Epith Cells Urine Bacteria Urine Casts Influenza A (RT-PCR) Influenza B (RT-PCR) SARS-CoV-2 RNA (RT-PCR) 11/16/22 11/16/22 11/16/22 22:11 22:11 22:56 WBC
--- NOTE | 2022-11-17 08:41 | PM.IMHP ---
H&P: HPI History of Present Illness Date/Time: 11/17/22 08:41 Chief Complaint: Abdominal pain Narrative: Patient is a 32-year-old woman who came to the emergency room about 10:00 a.m. last night with a 4 hour history of diffuse abdominal pain worse in the epigastrium and right upper quadrant. In the emergency room she was noted to be tender throughout her abdomen but worse in the upper abdomen epigastric area and right upper quadrant. The pain has since moved to the right lower quadrant. She had a elevated white blood cell count of 26,000 with a left shift. CT scan of the abdomen and pelvis showed a 12 mm appendix with stranding and inflammatory signs. She also had an appendicolith. She has been given analgesics and IV antibiotics. She is taken to surgery now for laparoscopic appendectomy. Review of Systems Review of Systems: All systems reviewed & are unremarkable except as noted in HPI and below (HPI and those items noted below) Constitutional: Constitutional: Denies chills and Denies fever(s) Cardiovascular: Cardiovascular: Denies chest pain, Denies diaphoresis, Denies dyspnea and Denies paroxysmal nocturnal dyspnea Respiratory: Respiratory: Denies chest congestion, Denies cough and Denies dyspnea Integumentary/Breasts: Skin/Breast: Denies lesions and Denies rash PMFSH Past Medical History Medical History Blood type O+ Healthy female adult Surgical History Surgical History No history of previous surgery Family History Family History Grandparent Family history of elevated blood lipids Family history of lung cancer Family history of schizophrenia Hypertension Hypothyroidism Mother Family history of arthritis Depression Patient's mother is in good health Family history of migraine headaches Hypertension Father Patient's father is in good health Family history of obesity Hyperthyroidism Sibling Hyperthyroidism Social History Social History Smoking status: Never smoker Second hand tobacco smoke exposure: No Alcohol intake: never Substance use: never Lack of Transportation: No Lack of Food: Never True Current Housing: I Have Housing Concerned About Future Housing: No Difficulty Paying Gas/Electric Bills: No Difficulty Paying for Meds: No Currently Unemployed: No Education: Master's Degree or Higher Difficulty w/ Childcare or Family Care: No Spiritual care concerns: No Meds Home Medications and Allergies Home Medications Medication Instructions Recorded Confirmed Type multivitamin 1 tablet PO DAILY 09/13/22 11/17/22 History Allergies Allergy/AdvReac Type Severity Reaction Status Date / Time No Known Allergies Allergy Verified 11/16/22 21:36 Vital Signs Vital Signs - 24 hr 11/16/22 21:30 11/17/22 00:04 11/17/22 02:38 Temperature 36.4 C L 36.6 C Pulse Rate 80 75 77 Respiratory Rate 18 18 18 Blood Pressure 143/81 H 143/81 H 156/88 H Pulse Oximetry 100 99 99 Oxygen Delivery Room Air 11/17/22 03:03 11/17/22 03:58 11/17/22 04:00 Temperature 37.2 C 36.6 C 37.4 C Pulse Rate 90 70 82 Respiratory Rate 18 18 19 Blood Pressure 158/78 H 151/69 H 140/85 Pulse Oximetry 99 99 100 Oxygen Delivery 11/17/22 06:00 11/17/22 07:54 Temperature 37.2 C Pulse Rate 80 Respiratory Rate 19 Blood Pressure 140/83 Pulse Oximetry 100 Oxygen Delivery Room Air Exam Const: General: comfortable, no acute distress, alert and awake HENMT: Head: normocephalic and atraumatic Mouth: Yes Normal oral and palatal mucosa present Eyes: Conjunctivae: conjunctivae normal Pupils: Equal, round and reactive pupils present EOM: EOMs intact bilaterally Neck: Neck: normal visual inspection, no lymphadenopathy and nontender Resp: Eff
--- NOTE | 2022-11-17 08:46 | WPDHPUPDATE1 ---
History and Physical Update Update Date/Time: 11/17/22 08:46 History and Physical has been reviewed, including an updated exam of the patient. There are NO changes in the patient's condition. Risks, benefits, and alternatives have been discussed and questions answered. Patient agrees to proceed with procedure.
[2022-11-17] MEDS: LACTATED RINGERS 1,000 ML 30 ML IV CONT ×2 (10:28→12:18)
--- NOTE | 2022-11-17 10:31 | P.PNAN_ITS ---
Anes - Eval Final PreProcedure Day of Procedure 11/17/22 10:31 Patient weight: obese Heart: regular rate and rhythm Lungs: clear to auscultation Airway: Mallampati scale class II Neurological: alert and oriented Last oral intake: >/= 8 hours ASA classification: II Emergent: no Anesthetic plan: proceed Anesthesia type and monitoring: general ETT and standard monitoring Results Review: All pre-operative results and documents have been reviewed as part of the pre- operative evaluation. Informed Consent: The patient's anesthetic plan and its attendant risks and benefits were discussed with the patient/family/POA. Questions were solicited and answers provided to the satisfaction of the patient/family/POA.
[2022-11-17] MEDS: ceFAZolin 2 GM/D5W 50 ML 2 GM/50 ML BAG IVPB (10:54)
[2022-11-17] MEDS: BUPIVACAINE/EPINEPHRINE 0.5% 50 ML VIAL 20 ML INFILTRATE (11:40)
--- NOTE | 2022-11-17 12:12 | W.PM.PROC2 ---
Procedure Note - Detailed Date of Procedure 11/17/22 Pre-op Diagnosis Appendicitis Post-op Diagnosis Other (Gangrenous retrocecal acute appendicitis) Procedure Performed Laparoscopic appendectomy Surgeon Checo Suarez MD [employer]willi[employer] Anesthesia General and Local Indications Patient started having upper abdominal pain yesterday associated with nausea. Pain became worse and she went to the emergency room. She was noted to have tenderness in [place] [address]. The pain moved to the right lower quadrant. CT scan showed acute appendicitis with an appendicolith. She is taken to surgery now for laparoscopic appendectomy. Findings Patient had retrocecal acute appendicitis. Description of Procedure Patient was taken to surgery and induced into general anesthesia. The abdomen is prepped and draped. Trocars were placed in usual fashion using [employer] optical trocars and a 5 mm camera. Patient was placed in Trendelenburg with the right-side elevated. We 1st looked at the patient's right ovary since on the CT scan there was noted to be a 1-2 cm enhancing lesion there. Had the right ovary looked like it had a functional cyst. I elevated the fallopian tube in took intraoperative photograph of the right ovary. It did not appear suspicious. We then looked for the appendix. There were adhesions to the distal ileum and the lateral sidewall of the abdomen. We took these down and then gained access to the retrocecal space. The appendix was surrounded by retroperitoneal fat which was very stuck to the appendix. The distal portion of the appendix was gangrenous. It did not appear to be ruptured. I had to mobilize the entire cecum and some of the proximal right colon. The appendix was still quite adherent to retroperitoneal fat and some mesenteric tissue. It was difficult to separate this and mobilize the appendix. It was done with a combination of cautery and blunt dissection. Eventually the appendix was freed from the surrounding tissues and inflammatory adhesions. We eventually mobilized the appendix and divided the mesoappendix so that the appendiceal base was skeletonized. I then ligated the base of the appendix with a Vicryl endoloop. The appendix was amputated just above the ligature. The mucosa of the appendiceal stump was cauterized. The appendix was immediately placed in an Endo-Catch bag retrieved through the 10 11 left lower quadrant trocar site. We then replaced the left lower quadrant trocar. We reviewed the areas of dissection. Irrigation and suction were carried out repeatedly checking for any signs of bleeding as there was a fair amount of raw surface tissue. No bleeding was noted. We placed the abdominal contents back in their general anatomic location. We evacuated CO2 and removed the trocar sleeves. Skin wounds were closed with subcuticular 4-0 Monocryl skin suture. The wounds were dressed with Exofin surgical adhesive. Patient was awakened and taken to recovery in good condition. Sponge and needle counts were correct x2. Estimated Blood Loss -15 Urine Output 350 Drains No Packing No Pathology Yes (Gangrenous retrocecal appendicitis) Complications No immediate complications Condition Stable Disposition PACU [facility] Billing Surgery - Charge Forward: Surgery Billing (Laparoscopic appendectomy)
--- NOTE | 2022-11-17 12:21 | PM.DS ---
DS: Admitting Diagnosis Discharge Date 11/17/2022 Admitting Diagnosis Acute appendicitis DS: Discharge Diagnosis Discharge Diagnosis (1) Acute appendicitis: Qualifiers: Acute appendicitis type: other Qualified Code(s): K35.890 - Other acute appendicitis without perforation or gangrene Code(s): K35.80 - Unspecified acute appendicitis Status: Acute DS: Summary Hospital Course Hospital Course: Patient came to the emergency room last night with abdominal pain. Evaluation there showed acute appendicitis. She was admitted started on antibiotics. She was seen by Dr. Suarez in the morning of 11/17/2022. She was taken to surgery and underwent laparoscopic appendectomy. She was found to have a gangrenous retrocecal appendix but no appendiceal rupture. She did well following surgery and was able to be discharged after period of observation. Status at Discharge Functional status at discharge: independent ambulation Overall status at discharge: patient is progressing back to baseline Time Spent with Patient Time attestation: Total time spent providing and/or coordinating discharge services: DS: Data Data Completed and Pending Pending studies at discharge: Pending at discharge 11/17/22 11:23 Surgical [PTH] Routine Labs on day of discharge: Labs from last 24 hours 11/17/22 11/16/22 11/16/22 02:59 22:56 22:11 WBC RBC Hgb Hct MCV MCH MCHC RDW Plt Count MPV Immature Gran % (Auto) Neut % (Auto) Lymph % (Auto) [place] % (Auto) Eos % (Auto) Baso % (Auto) Lymph # (Auto) [place] # (Auto) Eos # (Auto) Baso # (Auto) Abs Immat Gran (auto) Absolute Neuts (auto) Absolute Nucleated RBC Total Counted Neutrophils % (Manual) Band Neutrophils % Lymphocytes % (Manual) Monocytes % (Manual) Metamyelocytes % Nucleated RBC % Abs Neuts (Manual) Abs Lymphs (Manual) Abs Monocytes (Manual) Platelet Estimate Schistocytes ESR Sodium Potassium Chloride Carbon Dioxide Anion Gap BUN Creatinine Estim Creat Clear Calc Estimated GFR Glucose Lactic Acid Calcium Total Bilirubin AST ALT Alkaline Phosphatase C-Reactive Protein 2.0 H Total Protein Albumin Lipase Urine Color Yellow Urine Appearance Clear Urine pH 7.0 Ur Specific [place] 1.022 Urine Protein Negative Urine Glucose (UA) Negative Urine Ketones 3+ H Ur Blood (Man) 1+ H Urine Nitrate Negative Urine Bilirubin Negative Urine Urobilinogen 0.2 Leukocyte Esterase Rfl Negative Urine RBC 21-50 H Urine WBC 0-5 Ur Squamous Epith Cells None seen Urine Bacteria None seen Urine Casts 0-2 Influenza A (RT-PCR) Negative Influenza B (RT-PCR) Negative SARS-CoV-2 RNA (RT-PCR) Negative 11/16/22 11/16/22 11/16/22 22:11 22:11 22:11 WBC RBC Hgb Hct MCV MCH MCHC RDW Plt Count MPV Immature Gran % (Auto) Neut % (Auto) Lymph % (Auto) [place] % (Auto) Eos % (Auto) Baso % (Auto) Lymph # (Auto) [place] # (Auto) Eos # (Auto) Baso # (Auto) Abs Immat Gran (auto) Absolute Neuts (auto) Absolute Nucleated RBC Total Counted Neutrophils % (Manual) Band Neutrophils % Lymphocytes % (Manual) Monocytes % (Manual) Metamyelocytes % Nucleated RBC % Abs Neuts (Manual) Abs Lymphs (Manual) Abs Monocytes (Manual) Platelet Estimate Schistocytes ESR 16 Sodium 138 Potassium 3.9 Chloride 103 Carbon Dioxide 27 Anion Gap 8 BUN 12 Creatinine 0.60 L Estim Creat Clear Calc 119 Estimated GFR > 60 Glucose 140 H Lactic Acid 1.4 Calcium 9.0 Total Bilirubin 0.6 AST 27 ALT 29 Alkaline Phosphatase 140 H C-Reactive Protein Total Protein 8.0 Albumin 4.7 Lipase 49 Urine Color
[2022-11-17] MEDS: fentaNYL CITRATE INJ (*CRX) 100 MCG/2 ML VIAL 25 MCG IV PUSH (12:48)
== END 2022-11-17 15:50 | disposition home or self-care (01) ==
LOC: ANHED 11-17 02:39 → ANH3MEDSUR 11-17 04:17 → ANHSURGERY 11-19 23:50 → ANH3MEDSUR 11-19 23:53
PROVIDERS: Emergency Provider Physician Assistant; PCP Family Medicine; Visit Provider Surgery
PROC: 0DTJ4ZZ Resection of Appendix, Percutaneous Endoscopic Approach (ICD-10-PCS; CPT 44970; principal; 2022-11-17 10:00)
DX: K35.890 Other acute appendicitis without perforation or gangrene (principal); R11.2 Nausea with vomiting, unspecified; Z20.822 Contact with and (suspected) exposure to COVID-19
CPT/HCPCS: 44970; 36415; 74177; 80053; 81001; 81025; 83605; 83690; 85025; 85652; 86140; 87636; 88304; 96361; 96374; 96375; 99285; A9270; J0330; J0690; J2250; J2270; J2405; J2543; J2704; J2710; J3010; J7030; J7120; Q9967

== ENCOUNTER 2023-02-15 16:59 | Emergency (ER) | payer BC, SELFPAY ==
--- NOTE | 2023-02-15 17:08 | ED.URI ---
HPI - URI/Sore Throat General Chief Complaint: Upper Respiratory Infection Stated Complaint: SORE THROAT Time Seen by Provider: 02/15/23 17:08 Source: patient Mode of arrival: ambulatory Limitations: no limitations History of Present Illness HPI Narrative: Patient is a 32-year-old female that presents with sore throat and congestion since Saturday. Patient states sore throat has worsened throughout the week. Patient has tried DayQuil and NyQuil with no relief. Denies fever, chills, ear pain, cough, nausea, vomiting, diarrhea. Related Data Home Medications Medication Instructions Recorded Confirmed multivitamin 1 tablet PO DAILY 09/13/22 02/15/23 Allergies Allergy/AdvReac Type Severity Reaction Status Date / Time No Known Allergies Allergy Verified 02/15/23 17:31 Review of Systems Review of Systems: All systems reviewed & are unremarkable except as noted in HPI and below Constitutional: Constitutional: Denies body ache(s), Denies chills, Denies fatigue, Denies fever(s), Denies headache(s), Denies malaise and Denies weakness Eyes: Eyes: Denies blurry vision, Denies itchy eyes and Denies loss of vision ENT: Denies otalgia, Denies headache(s), Reports nasal congestion, Denies sinus pain and Reports sore throat Cardiovascular: Cardiovascular: Denies chest pain, Denies irregular heart rhythm and Denies dyspnea Respiratory: Respiratory: Denies cough and Denies dyspnea Gastrointestinal: Gastrointestinal: Denies abdominal pain, Denies diarrhea, Denies nausea and Denies vomiting Musculoskeletal: Musculoskeletal: Denies back pain, Denies myalgias and Denies arthralgias Integumentary/Breasts: Skin/Breast: Denies pruritus and Denies rash Neurologic: Denies headache(s), Denies loss of vision and Denies weakness Psychiatric: Psychiatric: Reports no additional psychiatric complaints Endocrine: Endocrine: Denies fatigue Allergic/Immunologic: Allergic/Immunologic: Denies itchy eyes PMFSH Past Medical History Medical History (Updated 02/15/23 @ 18:15 by Gladis Benites, DAYNE) Blood type O+ Family history of thyroid disease Healthy female adult Superficial folliculitis Urine positive for Chlamydia trachomatis by PCR Surgical History Surgical History (Updated 11/26/22 @ 10:23 by Anisa Elizondo) History of laparoscopic appendectomy 11/17/2022 - Laparoscopic appendectomy Hx of appendectomy No history of previous surgery Family History Family History Grandparent Family history of elevated blood lipids Family history of lung cancer Family history of schizophrenia Hypertension Hypothyroidism Mother Family history of arthritis Depression Patient's mother is in good health Family history of migraine headaches Hypertension Father Patient's father is in good health Family history of obesity Hyperthyroidism Sibling Hyperthyroidism Social History Social History Smoking status: Never smoker Second hand tobacco smoke exposure: No Alcohol intake: never Substance use: never Lack of Transportation: No Lack of Food: Never True Current Housing: I Have Housing Concerned About Future Housing: No Difficulty Paying Gas/Electric Bills: No Difficulty Paying for Meds: No Currently Unemployed: No Education: Master's Degree or Higher Difficulty w/ Childcare or Family Care: No Spiritual care concerns: No Comments At time of signature, agree with nursing past medical, surgical, social and family history. There is no relevant family history pertinent to the presenting complaint. Exam Const: General: cooperative, healthy appearing, comfortable, no acute distress and well nourished Nutritional Appearance: well nourished Orientation/consciousness: patient oriented x3 Limitations: no limitations HENMT: Head: normal to inspection, normocephalic and atraumatic Ears:
[2023-02-15 17:34] VITALS: BP 145/77; PULSE 82; RESP 16; TEMP 36.8; O2SAT 100
== END 2023-02-15 18:21 | disposition home or self-care (01) ==
PROVIDERS: Emergency Provider Nurse Practitioner Family; PCP Family Medicine
DX: J03.90 Acute tonsillitis, unspecified (principal)
CPT/HCPCS: 87081; 87880; 99213; G0463

== ENCOUNTER 2023-11-12 09:28 | Outpatient (CLI) | payer BC, SELFPAY ==
[2023-11-12 10:11] VITALS: BMI 40.7
[2023-11-12 10:16] VITALS: BP 135/76; PULSE 94
[2023-11-12 10:20] LABS: Basophils Absolute Auto 0.1 K/mm3 (0.0-0.1); Basophils Percent Auto 0.4 % (0.2-1.2); Eosinophils Absolute Auto 0.1 K/mm3 (0-0.3); Eosinophils Percent Auto 0.7 % (0-4.4); Hematocrit 39.3 % (37.0-47.0); Immature Granulocyte Absolute 0.16 K/mm3 (0.00-0.031); Immature Granulocyte Percent A 1.2 % (0-0.5); Lymphocytes Absolute Auto 1.73 K/mm3 (0.9-3.2); Lymphocytes Percent Auto 12.6 % (18.3-44.2); Mean Corpuscular HGB Conc 33.1 g/dl (32-36); Mean Corpuscular Volume 90.8 fl (80-100); Mean Platelet Volume 9.5 fl (7.4-10.4); Monocytes Absolute Auto 1.1 K/mm3 (0.1-0.6); Monocytes Percent Auto 7.7 % (2.6-8.5); Neutrophils Absolute Auto 10.6 K/mm3 (1.3-6.7); Neutrophils Percent Auto 77.4 % (45.5-73.1); Platelet Count Result 290 k/mm3 (150-375); Red Blood Count 4.33 M/mm3 (4.2-5.4); Red Cell Distribution Width 14.8 % (11.5-14.5); White Blood Count 13.7 K/mm3 (4.5-10.0)
[2023-11-12 10:24] LABS: Appearance Urine Cloudy (Clear); Bacteria Urine None Seen /hpf; Bilirubin Urine Negative (Negative); Blood Urine 2+ (Negative); Color Urine Yellow (Yellow); Glucose Urine UA Negative (Negative); Ketones Urine Negative (Negative); Leukocyte Esterase Ur Trace LEU/UL (Negative); Nitrate Urine Negative (Negative); Non Pathogenic Casts 0-2; Protein Urine Trace mg/dL (Negative); RBC Urine 21-50 /hpf (0-2); Specific Grav Ur 1.022 (1.001-1.035); Squamous Epithelial Cell Urine Many /hpf (Few); Urobilinogen Urine 0.2 mg/dL (<2.0); WBC Urine 0-5 /hpf; pH Urine 6.5 (5.0-9.0)
[2023-11-12 10:25] LABS: Add Urine Microscopic? YES
[2023-11-12 10:29] LABS: Alanine Aminotransferase 13 U/L (6-35); Albumin Level 3.4 g/dL (3.5-5.1); Alkaline Phosphatase 170 U/L (38-126); Anion Gap 5 mmol/L (8-16); Aspartate Amino Transferase 18 U/L (14-36); Bilirubin,Total 0.3 mg/dL (0.2-1.3); Blood Urea Nitrogen 8 mg/dL (7-17); Calcium 9.1 mg/dL (8.4-10.2); Carbon Dioxide 20 mmol/L (22-30); Chloride 106 mmol/L (98-107); Estimated CRCL calculation 182 ml/min; Estimated Glomerular Filt Rate > 60; Glucose 98 mg/dL (65-110); Potassium 3.9 mmol/L (3.4-5.0); Sodium 131 mmol/L (137-145); Uric Acid 4.7 mg/dL (2.5-7.5)
[2023-11-12 10:31] VITALS: BP 128/66; PULSE 99
[2023-11-12 10:46] VITALS: BP 147/85; PULSE 89
[2023-11-12 11:01] VITALS: BP 139/79; PULSE 92
[2023-11-12 11:04] LABS: Total Protein Urine Random 7 mg/dL; Ur Ttl Prot Creatinine Ratio 0.06 mg/mg (0-0.20)
[2023-11-12 11:16] VITALS: BP 141/77; PULSE 94
[2023-11-12 11:32] VITALS: BP 141/77; PULSE 95
== END 2023-11-12 11:30 ==
LOC: ANHOBOP 09:41 → ANHOBPP 09:43
PROVIDERS: PCP Family Medicine; Visit Provider Obstetrics & Gynecology
DX: O13.9 Gestational [pregnancy-induced] hypertension without significant proteinuria, unspecified trimester (principal); Z3A.00 Weeks of gestation of pregnancy not specified
CPT/HCPCS: 36415; 59025; 80053; 81001; 82570; 84156; 84550; 85025; 99199

== ENCOUNTER 2023-11-17 18:11 | Observation (INO) | payer BC, SELFPAY ==
[2023-11-17 20:29] VITALS: BP 127/61; PULSE 97
[2023-11-17 21:09] VITALS: BMI 40.8
--- NOTE | 2023-11-17 21:20 | OBADM ---
This patient, Emilia Mcfarlane, admitted to the OB room Labor/Delivery/Recovery 105 for observation. Patient/family oriented to hospital policies and general routines including ID bracelet, bed and alarms, visiting hours, pain management, procedures, bathroom and other care routines, personal items, smoking policy, room service/diet, and visiting hours. Patient/Family are encouraged to report perceived risks to care and to ask questions if they do not understand what they are told or what they should do.
--- NOTE | 2023-11-19 11:53 | PM.OBTRLD ---
OB - Triage/Final Diagnosis Visit Information Comments/Additional reasons for admission: I have assessed the risk for this patient, Emilia Mcfarlane, and determined that she would benefit from observation care. Final Diagnosis (1) False labor: Code(s): O47.9 - False labor, unspecified Status: Acute
== END 2023-11-17 21:15 | disposition home or self-care (01) ==
PROVIDERS: Admitting Provider Obstetrics & Gynecology; PCP Family Medicine; Visit Provider Obstetrics & Gynecology
DX: O47.1 False labor at or after 37 completed weeks of gestation (principal); Z3A.38 38 weeks gestation of pregnancy
CPT/HCPCS: 84112; G0378; G0379

== ENCOUNTER 2023-11-26 04:55 | Inpatient (IN) | payer BC, SELFPAY ==
[2023-11-26] VITALS (29 sets, daily range): BP systolic 111–149; BP diastolic 54–107; PULSE 66–151; RESP 16–20; TEMP 36.2–37.6; O2SAT 98–100; BMI 40.3
--- NOTE | 2023-11-26 05:32 | LDADM ---
This patient, Emilia Mcfarlane, was admitted to Labor/Delivery/Recovery 105 on 11/26/23 at 04:55. Plans for labor, pain management and were discussed with patient. Patient/family oriented to hospital policies and general routines including ID bracelet, bed and alarms, visiting hours, pain management, procedures, bathroom and other care routines, personal items, smoking policy, room service/diet and guest tray routines, security routines, and visiting hours. Patient/Family are encouraged to report perceived risks to care and to ask questions if they do not understand what they are told or what they should do. See OBIX for further documentation.
[2023-11-26] MEDS: LACTATED RINGERS 1,000 ML 125 ML IV CONT (06:20)
[2023-11-26] MEDS: OXYTOCIN 30 UNITS/NS 500 ML 30 UNITS/500 ML BAG IV CONT (06:21)
[2023-11-26] MEDS: AMPICILLIN 2 GM/NS 100 ML 2 GM/100 ML BAG IVPB (06:21)
[2023-11-26 06:25] LABS: Basophils Absolute Auto 0.1 K/mm3 (0.0-0.1); Basophils Percent Auto 0.4 % (0.2-1.2); Eosinophils Absolute Auto 0.2 K/mm3 (0-0.3); Eosinophils Percent Auto 1.3 % (0-4.4); Hematocrit 40.1 % (37.0-47.0); Hemoglobin 13.3 g/dL (12.0-15.0); Immature Granulocyte Absolute 0.14 K/mm3 (0.00-0.031); Immature Granulocyte Percent A 1.2 % (0-0.5); Immature Platelet Fraction Pct 6.4 % (0.9-11.2); Lymphocytes Absolute Auto 1.72 K/mm3 (0.9-3.2); Lymphocytes Percent Auto 14.4 % (18.3-44.2); Mean Corpuscular HGB Conc 33.2 g/dl (32-36); Mean Corpuscular Hemoglobin 30.3 pg (26-34); Mean Corpuscular Volume 91.3 fl (80-100); Neutrophils Absolute Auto 8.9 K/mm3 (1.3-6.7); Neutrophils Percent Auto 74.7 % (45.5-73.1); Platelet Count Result 281 k/mm3 (150-375); Red Blood Count 4.39 M/mm3 (4.2-5.4); White Blood Count 11.9 K/mm3 (4.5-10.0)
[2023-11-26 07:18] LABS: Alanine Aminotransferase 20 U/L (6-35); Albumin Level 3.5 g/dL (3.5-5.1); Alkaline Phosphatase 192 U/L (38-126); Anion Gap 7 mmol/L (8-16); Aspartate Amino Transferase 24 U/L (14-36); Bilirubin,Total 0.4 mg/dL (0.2-1.3); Blood Urea Nitrogen 9 mg/dL (7-17); Calcium 9.3 mg/dL (8.4-10.2); Carbon Dioxide 21 mmol/L (22-30); Chloride 106 mmol/L (98-107); Estimated CRCL calculation 149 ml/min; Estimated Glomerular Filt Rate > 60; Glucose 102 mg/dL (65-110); Potassium 4.2 mmol/L (3.4-5.0); Sodium 134 mmol/L (137-145)
[2023-11-26 07:21] LABS: Large Platelets Present; Platelet Estimate Adequate (Adequate); Schistocytes None Seen (NORMAL)
--- NOTE | 2023-11-26 08:56 | WPDOBADMIT ---
Obstetrics - Admit Note Admission Note: record reviewed. Additions to the history and/or subsequent changes in the physical findings follow. 33 y/o at 39 5/7 weeks here for scheduled induction of labor. Has had mildly elevated bp in office, no headache or epigastric / RUQ pain or visual field changes. Good movement. GBS bacteruria. AVSS NST reactive TOCO: contractions every 2-3 min ABD soft, nontender, gravid, vertex EXT nontender Cervix 4/80/-2. AROM with clear fluid. Vertex. A: IUP at term with borderline bp and favorable cervix. GBS pos. P: Oxytocin. Anticipate . Ampicillin.
[2023-11-26] MEDS: AMPICILLIN 1 GM/NS 50 ML 1 GM/50 ML BAG IVPB (10:25)
--- NOTE | 2023-11-26 12:16 | PM.OBPRVD ---
OB - Vaginal Delivery Note Procedure Delivery date: 11/26/23 Events: Positive Group B Strep (GBS) Induction method: Per Pitocin Protocol Delivery augmentation: Rupture of Membranes Delivery monitor: External FHT and External Uterine Route of delivery: Episiotomy description: None Laceration Description: Perineal - 2nd Degree Delivery repair: vicryl (3-0) Specimen: Yes (cord blood) Quantitative Blood Loss (ml): 220 Anesthesia type: Local (1% lidocaine) Disposition: PACU Complications: None Narrative: 33 y/o at 39 5/7 weeks gestation who presented to the hospital for induction of labor. Oxytocin was administered intravenously. Amniotomy was performed with return of clear fluid. She received ampicillin for GBS bacteruria. Her labor progressed and her cervix dilated completely. She pushed with good effort and delivered the infant's head to the perineum. A loose nuchal cord was splinted and the body delivered. The cord was reduced and the nose and mouth were bulb suctioned. After a delay, the cord was clamped and cut. The infant was handed off the field. Cord blood was collected. The placenta delivered spontaneously and was grossly normal in appearance. The usual 3 vessel cord was noted. A second degree midline perineal laceration was sustained. This was infiltrated with 10 mL of 1% lidocaine and reapproximated using 3 0 Vicryl in the usual layered fashion. Excellent hemostasis resulted as did excellent reapproximation of the normal anatomy. Needle and instrument counts were correct. The patient was taken to recovery room in stable condition. The infant went to the nursery. I was present and scrubbed for the entire delivery. Baby Date of : 11/26/23 Time of : 11:51 Weeks of gestation at delivery: 39 gender: Male Weight (pounds): 7 Weight (ounces): 12 presentation: vertex position: Right Occiput Anterior Placenta delivery description: Spontaneous and Normal Configuration Cord Vessel Description: 3 Vessels, Nuchal Cord and Delayed Cord Clamping score one minute: 5 score five minutes: 6 score ten minutes: 8
--- NOTE | 2023-11-26 12:20 | PM.OBDSVD ---
DS: Admitting Diagnosis Discharge Date 11/28/23 Admitting Diagnosis IUP at 39 5/7 weeks Favorable cervix GBS bacteruria Elevated bp in office DS: Discharge Diagnosis Discharge Diagnosis (1) (normal spontaneous vaginal delivery): Code(s): O80 - Encounter for full-term uncomplicated delivery Status: Acute (2) GBS bacteriuria: Code(s): R82.71 - Bacteriuria Status: Acute OB - DS: Summary OB Procedures : None OB Procedures Intrapartum: GBS prophylaxis OB Procedures: : None Peripartum Data Laceration Description: Perineal - 2nd Degree Episiotomy description: None Time Spent with Patient Time attestation: Total time spent providing and/or coordinating discharge services: DS: Data Data Completed and Pending Labs on day of discharge: Labs from last 24 hours 11/26/23 11/26/23 06:45 05:37 WBC 11.9 H RBC 4.39 Hgb 13.3 Hct 40.1 MCV 91.3 MCH 30.3 MCHC 33.2 RDW 15.0 H Plt Count 281 MPV TNP Immature Gran % (Auto) 1.2 H Neut % (Auto) 74.7 H Lymph % (Auto) 14.4 L Josephine % (Auto) 8.0 Eos % (Auto) 1.3 Baso % (Auto) 0.4 Lymph # (Auto) 1.72 Josephine # (Auto) 1.0 H Eos # (Auto) 0.2 Baso # (Auto) 0.1 Abs Immat Gran (auto) 0.14 H Absolute Neuts (auto) 8.9 H Absolute Nucleated RBC 0.0 Nucleated RBC % 0.0 Platelet Estimate Adequate Large Platelets Present % Immature Plt Fraction 6.4 Schistocytes None seen Sodium 134 L Potassium 4.2 Chloride 106 Carbon Dioxide 21 L Anion Gap 7 L BUN 9 Creatinine 0.50 L Estim Creat Clear Calc 149 Estimated GFR > 60 Glucose 102 Calcium 9.3 Total Bilirubin 0.4 AST 24 ALT 20 Alkaline Phosphatase 192 H Total Protein 7.0 Albumin 3.5 RPR Pending Blood Type O Positive Antibody Screen Negative Discharge Plan Discharge Attending physician on discharge: Zohaib Ahuja Discharging Clinician: Zohaib Ahuja Patient Disposition: Home, Self-Care Activity: pelvic rest Diet: regular Discharge Instructions: Call or return if temperature above 100.4? F, increased abdominal pain, increased vaginal bleeding or any new problems. Stand Alone Forms: General Discharge Information Follow-up/Referrals: Zohaib Ahuja MD [Physician] - 6 Weeks Discharge Medications: New ibuprofen 600 mg tablet 600 mg PO Q6H PRN (Reason: cramps) Qty: 30 0RF Continued prenat.vits,cory,[id number] Tablet 1 tablet PO DAILY Discontinued aspirin 81 mg Tablet 81 mg PO DAILY Date of admission: 11/26/23 04:55 Primary Care Provider: Brooke Arvizu Admitting Provider: Zohaib Ahuja Attending physician on admission: Zohaib Ahuja Condition: Stable
[2023-11-26] MEDS: OXYTOCIN 30 UNITS/NS 500 ML 30 UNITS/500 ML BAG 125 UNITS IV CONT (12:35)
[2023-11-26] MEDS: IBUPROFEN 600 MG TABLET PO ×2 (13:34→20:06)
[2023-11-26] MEDS: ACETAMINOPHEN 325 MG TABLET 650 MG PO ×2 (13:34→20:07)
[2023-11-26] MEDS: WITCH HAZEL 40 PADS 1 PAD TOPICAL (13:35)
[2023-11-26] MEDS: LANOLIN (LANSINOH) 7.5 GM CREAM 1 APPLIC TOPICAL (13:35)
[2023-11-26] MEDS: BENZOCAINE 20% AER SPR (*SP) 56 GM CAN 1 SPRAY TOPICAL (13:35)
--- NOTE | 2023-11-26 15:56 | PC.NURSE ---
[id number] Introductions were made, then consulted with patient to assess needs related to . Mother led the conversation with her?plans to feed?her infant and the?experience so far. Encouraged understanding of the benefits of skin to skin (demonstrating unwrapping and placing upright on her chest), stimulating with massage touch, changing positions to encourage wakefulness, how to watch for early feeding cues, responsive feeding, feeding on demand (aiming for 8-12 times in 24 hours, about every 2-3 hours), milk production, building/maintaining a milk supply, duration of feeding, signs of adequate intake/output and how to record on the feeding sheet. Mother works well with her with encouragement and education. Reviewed positioning and ear, shoulder, hip alignment, supporting the breast to facilitate a deep latch, asymmetrical latch (off-center), leading with the chin with a big, open, wide gape and body close to mother. latched optimally to the right, then the left breast in football position. Education given to the mother of how to visualize the suckling (with good rocking jaw motion), swallows (dropping of the lower jaw) and how to listen for drinking at the breast (the ka sound) which demonstrated. was able to maintain latch without pain to mother protecting the nipple with optimal positioning and latching. The parents shared that infant spit up prior to the breastfeed and shows signs of being spitty and gaggy. Mother has many big drops of breastmilk to express. Mother voiced understanding of skin to skin, stimulating with massage touch, responsive feedings, hand expressed colostrum, talking to infant to encourage if it has been 2 -2.5 hours since the start of the last , to call if infant does not latch, or if there is discomfort with . Resources used for education were facilitated with the visual educational handouts/ tool/mom and baby guide. Inpatient/outpatient resources provided with business card, feeding sheet, name written on the communication board, and the mom/baby guide. Parents voiced understanding of information, demonstrated learning and will call if there is a request for assistance. Reported to the Primary RN.
[2023-11-26] MEDS: SIMETHICONE 80 MG TAB.CHEW PO (20:06)
[2023-11-26] MEDS: DOCUSATE SODIUM 100 MG CAPSULE PO (20:06)
[2023-11-27] MEDS: ACETAMINOPHEN 325 MG TABLET 650 MG PO ×4 (03:28→23:51)
[2023-11-27] MEDS: IBUPROFEN 600 MG TABLET PO ×4 (03:29→23:52)
[2023-11-27 03:35] VITALS: BP 124/65; PULSE 94; RESP 16; TEMP 36.4
[2023-11-27 04:14] LABS: Hematocrit 33.6 % (37.0-47.0); Hemoglobin 10.9 g/dL (12.0-15.0)
[2023-11-27 08:15] VITALS: BP 136/56; PULSE 102; RESP 16; TEMP 36.2; O2SAT 97
--- NOTE | 2023-11-27 08:27 | PM.OBPNVD ---
OB - PN: Subj Subjective Date/time seen: 11/27/23 08:27 Narrative: Pain OK. Would like to go home. OB - PN: Obj Data Labs 11/27/23 03:41 11/26/23 06:45 Labs: Laboratory Results - last 24 hr 11/26/23 11/27/23 05:37 03:41 Hgb 10.9 L Hct 33.6 L RPR Cancelled OB - PN A/P Plan Comments: A: PPD#1, doing well. P: Declines circumcision. If OK with peds, home to f/u 6 weeks. Exam Psych: Other: AVSS ABD soft, nontender, fundus firm EXT nontender
[2023-11-27] MEDS: POLYSACCHARIDE IRON COMPLEX 150 MG CAPSULE PO (09:26)
[2023-11-27] MEDS: MULTIVIT/MIN/PREN/FOL AC/IRON TABLET 1 TAB PO (09:27)
[2023-11-27 12:36] VITALS: BP 135/73; PULSE 92; RESP 16; TEMP 37.2; O2SAT 98
[2023-11-27 17:15] VITALS: BP 128/72; PULSE 84
[2023-11-27 19:50] VITALS: BP 121/61; PULSE 90; RESP 16; TEMP 36.4
[2023-11-28 04:45] VITALS: BP 130/66; PULSE 86; RESP 16; TEMP 36.7
[2023-11-28 07:15] VITALS: BP 131/74; PULSE 88; RESP 16; TEMP 36.9; O2SAT 98
[2023-11-28] MEDS: MULTIVIT/MIN/PREN/FOL AC/IRON TABLET 1 TAB PO (07:24)
[2023-11-28] MEDS: IBUPROFEN 600 MG TABLET PO (07:25)
[2023-11-28] MEDS: ACETAMINOPHEN 325 MG TABLET 650 MG PO (07:25)
[2023-11-28] MEDS: DOCUSATE SODIUM 100 MG CAPSULE PO (07:26)
--- NOTE | 2023-11-28 08:41 | PM.OBPNVD ---
OB - PN: Subj Subjective Date/time seen: 11/28/23 08:41 Narrative: Pain OK. Would like to go home. OB - PN: Obj Data Labs 11/27/23 03:41 11/26/23 06:45 OB - PN A/P Plan day: 2 Comments: A: PPD#2, doing well. P: Home to f/u 6 weeks. Exam Psych: Other: AVSS ABD soft, nontender, fundus firm EXT nontender
--- NOTE | 2023-11-28 09:30 | PC.NURSE ---
Patient viewed the discharge video Mother & Baby Care, The First Two Weeks . Patient was given the opportunity and encouraged to ask questions. Patient verbalized understanding of information shared and has been given the mother/baby guide for home reference.
--- NOTE | 2023-11-28 13:02 | PC.NURSE ---
[id number] Consulted with mother concerning needs. Mother shared her ability to independently latch optimally without pain and she feels her milk increasing with engorgement. Mother is feeding appropriately for growth of and understands stimulating infant to eat if needed. Infant has had appropriate feedings in the last 24 hours meets the outcomes for weight, output, blood sugar and jaundice at this time. Reinforced understanding of milk production, transition of milk, signs of adequate intake, transition of stool, prevention/relief of engorgement, plugged ducts, mastitis, responsive watching for feeding cues, the different methods of stimulating to breastfeed 1-3 hours after the start of the last feeding, community resources, and when to call a provider using the resource of the feeding sheet along with the mom and baby guide. Mother voiced understanding of the information shared, is confident to continue effectively her infant at home, when to call for assistance, denies any additional assistance or education at this time.
[2023-11-29 10:41] VITALS: BP 135/87; PULSE 78; RESP 18; TEMP 37.2; O2SAT 100
== END 2023-11-28 13:45 | disposition home or self-care (01) | DRG 807 ==
LOC: ANHLDR 12:22 → ANHOB2 14:40
PROVIDERS: Admitting Provider Obstetrics & Gynecology; PCP Family Medicine; Visit Provider Obstetrics & Gynecology
DX: O99.824 Streptococcus B carrier state complicating childbirth (principal); Z37.0 Single live birth; Z3A.39 39 weeks gestation of pregnancy; O70.1 Second degree perineal laceration during delivery; O13.4 Gestational [pregnancy-induced] hypertension without significant proteinuria, complicating childbirth; O69.81X0 Labor and delivery complicated by cord around neck, without compression, not applicable or unspecified
CPT/HCPCS: 36415; 80053; 85014; 85018; 85025; 85055; 86850; 86900; 86901; A9270; J0290; J2590; J7120

== ENCOUNTER 2024-03-16 14:45 | Outpatient (RCR) | payer BC, SELFPAY ==
--- NOTE | 2024-02-19 14:53 | OPREHPOC ---
Outpatient Therapy Plan of Care This is a Multidisciplinary Plan of Care that may contain components documented by all disciplines (PT, OT, and ST.) PT Problem 1 PT Problem #1 Knowledge Deficit PT Goal 1 Goal 1. Patient will perform independent HEP Target Visit 3 PT Problem 2 PT Problem #2 Impaired Strength PT Goal 1 Goal 1. Improve pelvic floor strength to 4/5 to decrease incontinence 2. Improve pelvic floor endurance to 10 seconds to decrease incontinence 3. Improve core strength to able to hold with lift in order to lift children with less pain/ difficulty Target Visit 5 PT Problem 3 PT Problem #3 Pain PT Goal 1 Goal 1. No pelvic pain on exam 2. No pelvic pain with walking or lifting her children Target Visit 5 PT Problem 4 PT Problem #4 Impaired Functional ADLs PT Goal 1 Goal 1. Patient able to do all typical activities to care for her children without limitation Target Visit 5
--- NOTE | 2024-02-19 14:53 | PTOPEVAL1 ---
Assessment and note entered by Екатерина Stockton DPT Evaluation Information Assessment Status Evaluation Subjective Information Pt reports pelvic pain. Is 12 weeks and has been noticing pain since . Pain increases with prolonged walking and with standing to hold/rock her baby. Previous pain with tampon use and her 6 week exam. Voids less than 10 times a day, up 2 times at night if she is already up with her baby. Very slight stress incontinence a couple times a week but not daily. Can hold urge to void as long as needed. Denies pain with urination. BM most days of the week as she has been taking Miralax. Pt has been 3 times, 2 vaginal deliveries with 2 second degree tears. Highest pain 4/10 and lowest 0/10. Avoiding intercourse due to pain, difficulty lifting her older child due to pain. Patient goal: figure out what I need to strengthen , get rid of pain, be able to product picker my toddler No return to MD scheduled. Reported Pain Level Pain Score 0: Self Report Assessment PT Clinical Summary The patient is presenting to skilled therapy at 12 weeks with reports of pelvic pain and infrequent incontinence. She presents with decreased core strength and mild diastasis recti, decreased pelvic floor strength and endurance, and pain with palpation of pelvic floor. These impairments are contributing to her difficulty with activities including ambulation and caring for her children. She will benefit from therapy in order to reduce pain and improve function. Plan of Care Interventions Electrical Stimulation,Hot Pack/Cold Pack,Manual Therapy,Neuro Re-education,Patient/Caregiver Education,Therapeutic Activities,Therapeutic Exercise PT Services Indicated Yes Treatment Frequency and 1 time a week for 5 visits Duration These treatments will address the objective and functional deficits as defined above. The patient will be advanced safely and appropriately in order for the patient to progress towards his/her prior level of function. Additional exercises will be introduced and as well as a comprehensive home exercise program upon discharge, if needed, ?to ensure carryover of functional gains achieved in the clinic. This treatment plan has been reviewed and agreement upon by the patient.
--- NOTE | 2024-03-16 15:26 | OPREHPOC ---
Outpatient Therapy Plan of Care This is a Multidisciplinary Plan of Care that may contain components documented by all disciplines (PT, OT, and ST.) PT Problem 1 PT Problem #1 Knowledge Deficit PT Goal 1 Goal 1. Patient will perform independent HEP Target Visit 3 Progress Met PT Problem 2 PT Problem #2 Impaired Strength PT Goal 1 Goal 1. Improve pelvic floor strength to 4/5 to decrease incontinence 2. Improve pelvic floor endurance to 10 seconds to decrease incontinence 3. Improve core strength to able to hold with lift in order to lift children with less pain/ difficulty Target Visit 5 Progress Partially Met Comment 1. not met 2. met 3. met PT Problem 3 PT Problem #3 Pain PT Goal 1 Goal 1. No pelvic pain on exam 2. No pelvic pain with walking or lifting her children Target Visit 5 Progress Met PT Problem 4 PT Problem #4 Impaired Functional ADLs PT Goal 1 Goal 1. Patient able to do all typical activities to care for her children without limitation Target Visit 5 Progress Met
--- NOTE | 2024-03-16 15:26 | PTOPDC ---
Assessment and note entered by Екатерина Stockton DPTiffany Evaluation Information Assessment Status Discharge Subjective Information Patient reports things are going really well since starting therapy. Feels much stronger and is having less difficulty getting up and down off the floor and in and out of bed. Does not remember having any pain in the last week. No pain with intercourse and no incontinence. Reported Pain Level Pain Score 0: Self Report Assessment PT Clinical Summary The patient has made excellent progress in therapy. She reports no pain in the last week and no incontinence. She reports feeling stronger with ADL's. She demonstrates improved hip and core strength, improved pelvic floor endurance, and no pain with pelvic floor palpation. Due to her progress, plan for discharge at this time. She has been educated in a thorough HEP and to follow up with MD and/or PT as needed. Plan of Care PT Services Indicated No
== END 2024-03-16 15:53 | disposition home or self-care (01) ==
LOC: ANHGOSHPT 14:45
PROVIDERS: PCP Family Medicine; Visit Provider Obstetrics & Gynecology
DX: R10.2 Pelvic and perineal pain (principal)
CPT/HCPCS: 97112; 97140; 97161; 97530

== ENCOUNTER 2024-05-03 10:51 | Emergency (ER) | payer BC, SELFPAY ==
--- NOTE | 2024-05-03 10:55 | ED.URI ---
HPI - URI/Sore Throat General Chief Complaint: Upper Respiratory Infection Stated Complaint: sinus infection Time Seen by Provider: 05/03/24 11:03 Source: patient, RN notes reviewed and old records reviewed Mode of arrival: ambulatory Limitations: no limitations History of Present Illness HPI Narrative: 33-year-old female presents to the [facility] with complaints sinus congestion, pain and pressure since mid March. Patient states it started as a viral infection, thought it was COVID. Tested reports the and upper infection probably days 6 or 7 of her symptoms which she reports is negative. Patient states that symptoms did start getting better but over the last several days the congestion got worse. Has tried multiple OTC mediations with no relief. Onset (ago): week(s) Related Data Home Medications Medication Instructions Recorded Confirmed prenat.vits,cory,zvo-[id number] 1 tablet PO DAILY 11/01/23 05/03/24 Allergies Allergy/AdvReac Type Severity Reaction Status Date / Time No Known Allergies Allergy Verified 05/03/24 11:08 Review of Systems Review of Systems: All systems reviewed & are unremarkable except as noted in HPI and below Constitutional: Constitutional: Reports no additional constitutional complaints Eyes: Eyes: Reports no additional eye complaints ENT: Reports as per HPI, Denies otalgia, Reports nasal congestion and Denies sore throat Cardiovascular: Cardiovascular: Reports no additional cardiovascular complaints, Denies chest pain and Denies dyspnea Respiratory: Respiratory: Reports as per HPI, Denies chest congestion, Reports cough and Denies dyspnea Gastrointestinal: Gastrointestinal: Reports no additional gastrointestinal complaints, Denies abdominal pain, Denies nausea and Denies vomiting Musculoskeletal: Musculoskeletal: Reports no additional musculoskeletal complaints Integumentary/Breasts: Skin/Breast: Reports system reviewed and no additional complaints, except as docu Neurologic: Reports system reviewed and no additional complaints, except as documented Allergic/Immunologic: Allergic/Immunologic: Reports no additional allergic/immunologic complaints PMFSH Past Medical History Medical History Blood type O+ Family history of thyroid disease Healthy female adult Superficial folliculitis Urine positive for Chlamydia trachomatis by PCR Surgical History Surgical History History of laparoscopic appendectomy 11/17/2022 - Laparoscopic appendectomy Hx of appendectomy No history of previous surgery Family History Family History Grandparent Family history of elevated blood lipids Family history of lung cancer Family history of schizophrenia Hypertension Hypothyroidism Mother Family history of arthritis Depression Patient's mother is in good health Family history of migraine headaches Hypertension Father Patient's father is in good health Family history of obesity Hyperthyroidism Sibling Hyperthyroidism Social History Social History Smoking status: Never smoker Second hand tobacco smoke exposure: No Alcohol intake: never Substance use: never Do You Feel Safe in your Home?: Yes Lack of Transportation: No Lack of Food: Never True Current Housing: I Have Housing Concerned About Future Housing: No Difficulty Paying Gas/Electric Bills: No Difficulty Paying for Meds: No Currently Unemployed: No Education: Master's Degree or Higher Difficulty w/ Childcare or Family Care: No Spiritual care concerns: No Comments At the time of my signature, I reviewed and agree with the nursing past medical, surgical, social, and family history. There is no relevant family history pertinent to the patient complaint. Exam Const: General: c
[2024-05-03 11:09] VITALS: BP 130/74; PULSE 64; RESP 16; TEMP 37.1; O2SAT 99
== END 2024-05-03 11:26 | disposition home or self-care (01) ==
PROVIDERS: Emergency Provider Nurse Practitioner; PCP Family Medicine
DX: J32.9 Chronic sinusitis, unspecified (principal)
CPT/HCPCS: 99213; G0463

== ENCOUNTER 2025-03-07 18:34 | Emergency (ER) | payer BC, SELFPAY ==
--- NOTE | 2025-03-07 18:36 | ED.URI ---
HPI - URI/Sore Throat General Stated Complaint: Sinus Problems Time Seen by Provider: 03/07/25 18:45 Source: patient Mode of arrival: ambulatory Limitations: no limitations History of Present Illness HPI Narrative: Emilia is a 34-year-old female patient presenting to the clinic today with complaints of sinus pressure, sinus congestion, yellow nasal drainage, and sinus headaches x3 weeks. She reports she did have low-grade fever over the past several days. Denies any chest pain or shortness of breath. Related Data Home Medications ?Medication ?Instructions ?Recorded ?Confirmed ?Last Taken ?Type flgfzlkx-wme-fmeb-FA-Ca carb-vit K 1 tablet PO DAILY 09/01/24 Unknown History 18 mg iron-400 mcg-500 mg tablet (One-A-Day Womens Formula) Allergies Allergy/AdvReac Type Severity Reaction Status Date / Time No Known Allergies Allergy Verified 09/01/24 12:00 Review of Systems Review of Systems: Pertinent positives per HPI. Patient denies any fever, chills, rash, headache, visual changes, dizziness, cough, shortness of breath, chest pain, palpitations, nausea, vomiting, diarrhea, constipation, abdominal pain, or any urinary issues. [facility] Past Medical History Medical History Urine positive for Chlamydia trachomatis by PCR Superficial folliculitis Family history of thyroid disease Blood type O+ Healthy female adult Surgical History Surgical History History of laparoscopic appendectomy 11/17/2022 - Laparoscopic appendectomy Hx of appendectomy No history of previous surgery Family History Family History Grandparent Family history of elevated blood lipids Family history of lung cancer Family history of schizophrenia Hypertension Hypothyroidism Mother Family history of arthritis Depression Patient's mother is in good health Family history of migraine headaches Hypertension Father Patient's father is in good health Family history of obesity Hyperthyroidism Sibling Hyperthyroidism Social History Social History Smoking status: Never smoker Second hand tobacco smoke exposure: No Alcohol intake: never Substance use: never Do You Feel Safe in your Home?: Yes Lack of Transportation: No Lack of Food: Never True Current Housing: I Have Housing Concerned About Future Housing: No Difficulty Paying Gas/Electric Bills: No Difficulty Paying for Meds: No Currently Unemployed: No Education: Master's Degree or Higher Difficulty w/ Childcare or Family Care: No Spiritual care concerns: No Comments At the time of my signature, I reviewed and agree with the nursing past medical, surgical, social, and family history. There is no relevant family history pertinent to the patient complaint. Exam Narrative: General: Well-developed, obese, in no apparent distress Head: Normocephalic, atraumatic Eyes: Pupils equally round and reactive to light bilaterally, EOM intact, sclera and conjunctive clear, no discharge, lids normal Ears: TMs intact and congested, ear canals clear, no drainage, grossly hearing normal. Nose: Nares patent, yellow nasal discharge, moderate inflammation, maxillary and frontal sinus tenderness. Mouth: Oral pharynx without lesions or masses, good dentition, MMM. Postnasal drip Neck: Supple, trachea midline, no enlargement of anterior or posterior cervical nodes, no thyroid masses or goiter palpable. Cardio: Regular rate and rhythm, s1 and s2 normal, no murmur appreciated. Resp: Clear to auscultation bilaterally, no rhonchi, rales, wheezing or rubs Course Course Emergency Course: Portions of this record may have been created with voice recognition software. Level of Care: Express Care Visit Vital Signs Vital signs: Vital Signs Temperature 36.7 C 03/07/25 18:45 Pulse Rate 70 03/07/25 18:45 Respiratory Rate 16 03/07/25 18:45 Blood Pressure 154/80 H 03/07/25 18:45 Pulse Oximetry 100 03/07/25 18:45 Oxygen Delivery Room Air 03/07/25 18:45 Temperature 36.7 C 03/07/25 18:45 Pulse Rate 70 03/07/25 18:45 Respiratory Rate 16 03/07/25 18:45 Blood Pressure 154/80 H 03/07/25 18:45 Pulse Oximetry 100 03/07/25 18:45 Oxygen Delivery Room Air 03/07/25 18:45 Vital signs reviewed MDM - URI/Sore Throat MDM Narrative Medical decision making narrative: At the time of visit patient is resting comfortably on the exam table. Patient appears to be nontoxic. Plan: I suspect patient has acute bacterial rhinosinusitis. Prescription for Augmentin and prednisone was sent to the pharmacy. Supportive measures were discussed with the patient and they voiced understanding discharge instructions and agrees to treatment plan. Return precautions reviewed Differential Diagnosis Differential diagnosis: Likely upper respiratory infection, otitis media, sinusitis, viral infection, bronchitis, influenza, pharyngitis and other (COVID) Discharge Plan Discharge Clinical Impression: Acute bacterial rhinosinusitis Patient Disposition: Home Condition: Stable Instructions: Antibiotic Form, Rhinosinusitis (ED) Additional Instructions: Take prescription medications only as prescribed-Augmentin and prednisone Increase fluids and stay well hydrated Tylenol/motrin for pain/fever Flonase and OTC antihistamines as directed Vicks vapor rub to open sinuses Sinus rinses for congestion Cepacol spray, cough drops, throat lozenges, warm tea with honey/lemon, gargle salt water to soothe throat BRAT diet for diarrhea Clear liquids x 24 hours then advance as tolerated for nausea/vomiting Go to the ED if you develop a worsening in your condition- high fever not controlled by Tylenol or Motrin, dehydration, weakness, lethargy, shortness of breath, or chest pain. Follow up with your PCP in 3-5 days if symptoms persist. Patient Language: Luxembourger Prescriptions: New prednisone 20 mg tablet 40 mg PO DAILY 5 Days Qty: 10 0RF amoxicillin-pot clavulanate 875-125 mg tablet 1 tablet PO Q12H 10 Days Qty: 20 0RF No Action One-A-Day Womens Formula 18 mg iron-400 mcg-500 mg tablet 1 tablet PO DAILY hydrocortisone [Anusol-HC] 2.5 % cream with perineal applicator 1 applic RECTAL QHS PRN (Reason: hemorrhoids) Qty: 30 1RF Follow-up/Referrals: Brooke Arvizu MD [Primary Care Provider] - Time of Disposition: 18:48 Quality NIHSS Nursing Documentation ED NIHSS nursing documentation: reviewed/agree
[2025-03-07 18:45] VITALS: BP 154/80; PULSE 70; RESP 16; TEMP 36.7; O2SAT 100
== END 2025-03-07 18:53 | disposition home or self-care (01) ==
PROVIDERS: Emergency Provider Nurse Practitioner Family; PCP Family Medicine
DX: J01.90 Acute sinusitis, unspecified (principal)
CPT/HCPCS: 99213; G0463

== ENCOUNTER 2025-07-24 10:09 | Emergency (ER) | payer BC, SELFPAY ==
[2025-07-24 10:22] VITALS: BP 130/71; PULSE 91; RESP 16; TEMP 37.1; O2SAT 100
--- NOTE | 2025-07-24 10:38 | ED.URI ---
HPI - URI/Sore Throat General Chief Complaint: Upper Respiratory Infection Stated Complaint: SINUS CONGESTION Time Seen by Provider: 07/24/25 10:21 Source: patient and RN notes reviewed Mode of arrival: ambulatory Limitations: no limitations History of Present Illness HPI Narrative: 35-year-old female patient presents today with a 2-2.5 week history of nasal congestion, headache and facial pressure, body aches fatigue, postnasal drip, and occasional left ear pain. Symptoms are worse at night. Denies fever or shortness of breath. She has been using Tylenol, ibuprofen, and saline nasal spray very mild improvement. Reports she does have a sick child at home as well. Related Data Allergies Allergy/AdvReac Type Severity Reaction Status Date / Time No Known Allergies Allergy Verified 07/24/25 10:20 [facility] Past Medical History Medical History Urine positive for Chlamydia trachomatis by PCR Superficial folliculitis Family history of thyroid disease Blood type O+ Healthy female adult Surgical History Surgical History History of laparoscopic appendectomy 11/17/2022 - Laparoscopic appendectomy Hx of appendectomy No history of previous surgery Family History Family History Grandparent Family history of elevated blood lipids Family history of lung cancer Family history of schizophrenia Hypertension Hypothyroidism Mother Family history of arthritis Depression Patient's mother is in good health Family history of migraine headaches Hypertension Father Patient's father is in good health Family history of obesity Hyperthyroidism Sibling Hyperthyroidism Social History Social History Smoking status: Never smoker Second hand tobacco smoke exposure: No Alcohol intake: never Substance use: never Do You Feel Safe in your Home?: Yes Lack of Transportation: No Lack of Food: Never True Current Housing: I Have Housing Concerned About Future Housing: No Difficulty Paying Gas/Electric Bills: No Difficulty Paying for Meds: No Currently Unemployed: No Education: Master's Degree or Higher Difficulty w/ Childcare or Family Care: No Spiritual care concerns: No Comments At time of signature, I have reviewed and agree with nursing past medical, surgical, social and family history unless otherwise noted. Please see nursing chart for further information. There is no relevant family history pertinent to the presenting complaint Exam Narrative: GENERAL: Mildly ill-appearing, well-nourished, and in no acute distress. HEAD: Normocephalic, atraumatic. EYES: EOMI. No redness or drainage. Conjunctivae normal. ENT: Mucous membranes pink and moist. Nares congested with rhinorrhea. Bilateral frontal and maxillary sinus tenderness. TMs normal bilaterally. Throat normal. Uvula midline. NECK: Normal AROM. Supple. Bilateral anterior cervical chain lymphadenopathy. CHEST: No respiratory distress. Clear to auscultation. HEART: Regular rate and rhythm. No murmur appreciated. EXTREMITIES: Normal range of motion. No edema. SKIN: Warm, dry, no rash. Capillary refill normal. Normal skin turgor. NEURO: No focal deficits. Alert and oriented x3. Gait steady. PSYCH: Normal affect. No signs of depression or anxiety. Course Course Level of Care: Express Care Visit Vital Signs Vital signs: Vital Signs Temperature 98.7 F 07/24/25 10:22 Pulse Rate 91 07/24/25 10:22 Respiratory Rate 16 07/24/25 10:22 Blood Pressure 130/71 07/24/25 10:22 Pulse Oximetry 100 07/24/25 10:22 Temperature 98.7 F 07/24/25 10:22 Pulse Rate 91 07/24/25 10:22 Respiratory Rate 16 07/24/25 10:22 Blood Pressure 130/71 07/24/25 10:22 Pulse Oximetry 100 07/24/25 10:22 Reviewed MDM - URI/Sore Throat MDM Narrative Medical decision making narrative: 35-year-old female patient presents today with a 2-2.5 week history of nasal congestion, headache and facial pressure, body aches fatigue, postnasal drip, and occasional left ear pain. Symptoms are worse at night. Denies fever or shortness of breath. She has been using Tylenol, ibuprofen, and saline nasal spray very mild improvement. Upon exam, patient is mildly ill appearing with nasal congestion, frontal and maxillary sinus tenderness. Patient will be started on a course of Augmentin for bacterial sinusitis. Patient agrees with plan. Vital signs stable. Anticipatory guidance given. Differential Diagnosis Differential diagnosis: Likely upper respiratory infection, otitis media, sinusitis and viral infection Critical Care Time Critical Care Time Critical Care Time: No Discharge Plan Discharge Clinical Impression: Acute bacterial sinusitis Patient Disposition: Home Condition: Stable Instructions: Antibiotic Form, Sinusitis (ED) Additional Instructions: Please take the antibiotics as prescribed. You may consider starting some Flonase for your nasal congestion and sinus pressure. Follow-up with your PCP next week if symptoms are not improving. Patient Language: [place]an Prescriptions: New amoxicillin-pot clavulanate 875-125 mg tablet 1 tablet PO Q12H 7 Days Qty: 14 0RF Follow-up/Referrals: Brooke Arvizu MD [Primary Care Provider, [facility]] Time of Disposition: 10:42
== END 2025-07-24 10:49 | disposition home or self-care (01) ==
PROVIDERS: Emergency Provider Nurse Practitioner; PCP Family Medicine
DX: J01.90 Acute sinusitis, unspecified (principal)
CPT/HCPCS: 99213; G0463

== ENCOUNTER 2025-09-07 09:11 | Outpatient (CLI) | payer BC, SELFPAY ==
--- NOTE | ~2025-09-07 | US_ITS ---
ULTRASOUND ABDOMEN LIMITED (RIGHT UPPER QUADRANT) Clinical History: R10.9 - Unspecified abdominal pain Comparison: CT 11/16/2022 Technique: Right upper quadrant sonography Findings: Liver: Enlarged. Normal echotexture. No intrahepatic biliary ductal dilatation. Normal hepatopedal flow main portal vein. Common Duct: Normal caliber. 4 mm. Gallbladder: No stones. No wall thickening. No pericholecystic fluid. Pancreas: Largely obscured by bowel gas. IMPRESSION: 1. No acute findings. Reviewed, dictated and finalized at location R. STICS COORDINATOR IMPRESSION: 1. No acute findings.
== END 2025-09-07 09:12 | disposition home or self-care (01) ==
LOC: GOSHIMG 09:11
PROVIDERS: PCP Family Medicine; Visit Provider Family Medicine
DX: R10.9 Unspecified abdominal pain (principal); R11.0 Nausea
CPT/HCPCS: 76705